=== PATIENT | female | born 1990 | race Caucasian/White ===

== ENCOUNTER 2017-01-29 08:56 | Emergency (ER) | payer OTHER ==
[~2017-01-29] VITALS: Ht 157.5 cm; Wt 60.5 kg
[2017-01-29] MEDS ORDERED: CELE1CAP9 PO (09:08)
[2017-01-29] MEDS ORDERED: FOLI1TAB4 PO (09:08)
[2017-01-29] MEDS ORDERED: METH2.5TA PO (09:08)
[2017-01-29] MEDS ORDERED: OMEP20CA3 PO (09:08)
[2017-01-29] MEDS ORDERED: LIDOCAINE 1% SDV INJ 30 ML VIAL SC SCH (09:30)
[2017-01-29] MEDS ORDERED: DERMABOND TOPICAL SKIN ADHESIVE TOP ONE (09:30)
[2017-01-29] MEDS ORDERED: TYLE325T5 PO (10:19)
[2017-01-29 10:42] VITALS: BP 119/78
== END 2017-01-29 10:43 | disposition home or self-care (01) ==
LOC: M ED 08:56
DX: S61.411A Laceration without foreign body of right hand, initial encounter (principal); W25.XXXA Contact with sharp glass, initial encounter; Y92.9 Unspecified place or not applicable; Y93.89 Activity, other specified; Y99.9 Unspecified external cause status; K21.9 Gastro-esophageal reflux disease without esophagitis; M06.9 Rheumatoid arthritis, unspecified; Z79.899 Other long term (current) drug therapy; Z88.6 Allergy status to analgesic agent; Z88.8 Allergy status to other drugs, medicaments and biological substances

== ENCOUNTER 2017-02-01 11:27 | Emergency (ER) | payer OTHER ==
[~2017-02-01] VITALS: Ht 157.5 cm; Wt 60.5 kg
[2017-02-01 11:27] VITALS: BP 119/80
[~2017-02-01 11:27] MED LIST: CELE1CAP9 PO; FOLI1TAB4 PO; METH2.5TA PO; OMEP20CA3 PO; TYLE325T5 PO
[2017-02-01] MEDS ORDERED: embril IM (11:37)
[2017-02-01] MEDS ORDERED: CEPH500C PO (12:16)
== END 2017-02-01 12:27 | disposition home or self-care (01) ==
LOC: M ED 11:27
DX: L03.115 Cellulitis of right lower limb (principal); M06.9 Rheumatoid arthritis, unspecified; K21.9 Gastro-esophageal reflux disease without esophagitis; Z79.899 Other long term (current) drug therapy; Z88.6 Allergy status to analgesic agent; Z88.8 Allergy status to other drugs, medicaments and biological substances

== ENCOUNTER 2017-02-12 09:09 | Emergency (ER) | payer OTHER ==
[~2017-02-12] VITALS: Ht 157.5 cm; Wt 68.5 kg
[~2017-02-12 09:09] MED LIST changes: +CEPH500C PO; +embril IM
[2017-02-12 09:10] VITALS: BP 114/72
== END 2017-02-12 09:47 | disposition home or self-care (01) ==
LOC: M ED 09:09
DX: Z48.02 Encounter for removal of sutures (principal)

== ENCOUNTER 2017-07-06 18:49 | Inpatient (IN) | payer OTHER ==
[2017-07-06] MEDS ORDERED: PORACTANT ALFA 80MG/ML 1.5 ML VIAL(CUROSURF) As Ordered (19:22)
[2017-07-06] MEDS ORDERED: fentaNYL 100 MCG/2 ML INJECTION (J3010) As Ordered (19:29)
[2017-07-06] MEDS ORDERED: MIDAZOLAM INJ 2 MG/2 ML VIAL (J2250) As Ordered (19:32)
[2017-07-06] MEDS ORDERED: OXYTOCIN INJ 10 UNITS/ML VIAL (J2590) As Ordered ×3 (19:53)
[2017-07-06] MEDS ORDERED: PROPOFOL 200 MG/20 ML VIAL As Ordered (19:53)
[2017-07-06] MEDS ORDERED: SUCCINYLCHOLINE 100 MG/5 ML SYRINGE (J0330) As Ordered (19:53)
[2017-07-06] MEDS ORDERED: UNASYN 3 GM VIAL As Ordered (19:56)
[2017-07-06 19:57] LABS: CORD GAS ABE V -24.3; CORD GAS HCO3 V 10.6 MEQ/L; CORD GAS O2 SAT V 67.8 %; CORD GAS PCO2 V 64.8 mmHg; CORD GAS PO2 V 43.3 mmHg; CORD GAS SBC V 7.6 MEQ/L; CORD GAS TCO2 V 12.6 MEQ/L
[2017-07-06 19:59] LABS: CORD GAS PH V 6.833 UNITS; HEMATOCRIT 34.8 % (36.0-47.0); HEMOGLOBIN 11.7 g/dl (12.0-15.5); MEAN CORPUSCULAR HEMOGLOBIN 30.4 pg (27.0-33.0); MEAN CORPUSCULAR HGB CONC 33.6 g/dl (32.0-36.5); MEAN CORPUSCULAR VOLUME 90.4 fl (80.0-96.0); PLATELET COUNT, AUTOMATED 180 10^3/uL (150-450); RED BLOOD COUNT 3.85 10^6/uL (4.00-5.40); RED CELL DISTRIBUTION WIDTH 13.4 % (11.5-14.5); WHITE BLOOD COUNT 19.3 10^3/uL (4.0-10.0)
[2017-07-06] MEDS ORDERED: METOCLOPRAMIDE INJ 10MG/2ML VIAL (J2765) As Ordered (20:01)
[2017-07-06] MEDS ORDERED: ONDANSETRON 4MG/2ML VIAL (J2405) As Ordered (20:01)
[2017-07-06] MEDS ORDERED: MEPERIDINE 50 MG/ML 1ML VIAL (J2175) As Ordered (20:20)
[2017-07-06] MEDS ORDERED: MORPHINE 1MG/ML IN 0.9% NACL 100ML IV BAG As Ordered (20:36)
[2017-07-06] MEDS: LR 1,000 ML IV ×2 (20:40→23:45)
[2017-07-06] MEDS ORDERED: NS 1,000 ML IV (20:40)
[2017-07-06] MEDS ORDERED: NALBUPHINE HCL 10 MG/ML AMP (J2300) IV (20:45)
[2017-07-06] MEDS ORDERED: MORPHINE 1MG/ML IN 0.9% NACL 100ML IV BAG IV (20:45)
[2017-07-06] MEDS ORDERED: EPIDURAL/PCA KEYS XX (20:45)
[2017-07-06] MEDS: OXYTOCIN DRIP 30 UNITS in APPROPRIATE DILUENT 1 EA IV (20:45)
[2017-07-06] MEDS ORDERED: diphenhydrAMINE INJ 50MG/ML VIAL (J1200) IV (20:45)
[2017-07-06] MEDS ORDERED: NALOXONE INJ 0.4 MG/1 ML VIAL (J2310) IV (20:45)
[2017-07-06] MEDS ORDERED: PERCOCET 5MG/325MG TAB PO ×2 (20:45)
[2017-07-06] MEDS ORDERED: MEASLES,MUMPS,RUBELLA VACCINE INJ (MMR-II) (90707) SC (20:45)
[2017-07-06] MEDS ORDERED: OXYTOCIN 30 UNITS IN 0.9% NaCl 500ML IV BAG (J2590) As Ordered (20:51)
[2017-07-06 21:13] LABS: HEMATOCRIT 30.8 % (36.0-47.0); HEMOGLOBIN 10.2 g/dl (12.0-15.5); MEAN CORPUSCULAR HEMOGLOBIN 30.4 pg (27.0-33.0); MEAN CORPUSCULAR HGB CONC 33.1 g/dl (32.0-36.5); MEAN CORPUSCULAR VOLUME 91.9 fl (80.0-96.0); PLATELET COUNT, AUTOMATED 200 10^3/uL (150-450); RED BLOOD COUNT 3.35 10^6/uL (4.00-5.40); RED CELL DISTRIBUTION WIDTH 13.4 % (11.5-14.5)
[2017-07-06] MEDS ORDERED: fentaNYL 100 MCG/2 ML INJECTION (J3010) IV (21:15)
[2017-07-06] MEDS ORDERED: ONDANSETRON 4MG/2ML VIAL (J2405) IV (21:15)
[2017-07-06 21:24] LABS: FIBRINOGEN 261 MG/DL (221-452)
[2017-07-06 21:29] LABS: AMPHETAMINES URINE REFLEX NEGATIVE (NEGATIVE); BARBITURATES URINE REFLEX NEGATIVE (NEGATIVE); CANNABINOIDS URINE REFLEX NEGATIVE (NEGATIVE); COCAINE METABOLITE URINE REFLE NEGATIVE (NEGATIVE); METHADONE URINE REFLEX NEGATIVE (NEGATIVE); OPIATES URINE REFLEX NEGATIVE (NEGATIVE); PHENCYCLIDINE URINE REFLEX NEGATIVE (NEGATIVE); POS COUNT POS FLAG
[2017-07-06 21:31] LABS: WHITE BLOOD COUNT 36.2 10^3/uL (4.0-10.0)
[2017-07-06 21:36] LABS: ALT/SGPT 25 U/L (12-78); AST/SGOT 46 U/L (7-37); BILIRUBIN,TOTAL 0.1 MG/DL (0.2-1.0); CREATININE FOR GFR 0.86 MG/DL (0.55-1.30); GLOMERULAR FILTRATION RATE > 60.0 (>60); LDH LACTATE DEHYDROGENASE 308 U/L (84-246); URIC ACID 6.3 MG/DL (2.6-6.0)
[2017-07-06 21:49] LABS: BENZODIAZEPINES URINE REFLEX PENDING CONFIRMATION (NEGATIVE)
[2017-07-07] MEDS: AMPICILLIN SOD/SULBACTAM SOD 3 GM in D5W MINI-BAG PLUS 100 ML IV ×4 (02:34→20:13)
[2017-07-07] MEDS ORDERED: EPINEPHrine 1MG/10ML SYRINGE 1.5IN (04:29)
[2017-07-07] MEDS: ONDANSETRON 4MG/2ML VIAL (J2405) IV (05:50)
[2017-07-07] MEDS: LR 1,000 ML IV ×3 (05:51→12:40)
[2017-07-07 07:38] LABS: HEMATOCRIT 25.9 % (36.0-47.0); HEMOGLOBIN 8.7 g/dl (12.0-15.5); MEAN CORPUSCULAR HEMOGLOBIN 31.3 pg (27.0-33.0); MEAN CORPUSCULAR HGB CONC 33.6 g/dl (32.0-36.5); MEAN CORPUSCULAR VOLUME 93.2 fl (80.0-96.0); PLATELET COUNT, AUTOMATED 161 10^3/uL (150-450); RED BLOOD COUNT 2.78 10^6/uL (4.00-5.40); RED CELL DISTRIBUTION WIDTH 13.6 % (11.5-14.5); WHITE BLOOD COUNT 26.5 10^3/uL (4.0-10.0)
[2017-07-07] MEDS: PRENATAL VITAMINS CHEWABLE TABLET PO (08:04)
[2017-07-07] MEDS ORDERED: PERCOCET 5MG/325MG TAB PO (08:15)
[2017-07-07] MEDS: PERCOCET 5MG/325MG TAB PO ×4 (08:41→21:46)
[2017-07-07] MEDS: zolPIDEM TARTRATE 5 MG TAB PO (23:02)
[2017-07-07] MEDS: SIMETHICONE 80 MG CHEW TAB PO (23:02)
[2017-07-08] MEDS: AMPICILLIN SOD/SULBACTAM SOD 3 GM in D5W MINI-BAG PLUS 100 ML IV (02:00)
[2017-07-08] MEDS: PERCOCET 5MG/325MG TAB PO ×4 (05:09→22:47)
[2017-07-08 09:05] LABS: HEMATOCRIT 22.6 % (36.0-47.0); HEMOGLOBIN 7.4 g/dl (12.0-15.5); MEAN CORPUSCULAR HGB CONC 32.7 g/dl (32.0-36.5); MEAN CORPUSCULAR VOLUME 94.6 fl (80.0-96.0); PLATELET COUNT, AUTOMATED 146 10^3/uL (150-450); RED BLOOD COUNT 2.39 10^6/uL (4.00-5.40); RED CELL DISTRIBUTION WIDTH 13.9 % (11.5-14.5); WHITE BLOOD COUNT 20.6 10^3/uL (4.0-10.0)
[2017-07-08] MEDS: SIMETHICONE 80 MG CHEW TAB PO (09:23)
[2017-07-08] MEDS: PRENATAL VITAMINS CHEWABLE TABLET PO (09:23)
[2017-07-08] MEDS: NS 1,000 ML IV (10:45)
[2017-07-08] MEDS ORDERED: NS 1,000 ML IV (14:19)
[2017-07-08 15:12] LABS: IMMEDIATE SPIN CROSSMATCH 1 2
[2017-07-08 17:10] LABS: MEAN CORPUSCULAR HEMOGLOBIN 31.1 pg (27.0-33.0); MEAN CORPUSCULAR VOLUME 91.5 fl (80.0-96.0); PLATELET COUNT, AUTOMATED 161 10^3/uL (150-450); RED BLOOD COUNT 3.28 10^6/uL (4.00-5.40); RED CELL DISTRIBUTION WIDTH 14.1 % (11.5-14.5); WHITE BLOOD COUNT 20.5 10^3/uL (4.0-10.0)
[2017-07-08 17:16] LABS: HEMOGLOBIN 10.2 g/dl (12.0-15.5)
[2017-07-08 17:35] LABS: ALT/SGPT 44 U/L (12-78); AST/SGOT 102 U/L (7-37); BILIRUBIN,TOTAL 0.2 MG/DL (0.2-1.0); CREATININE FOR GFR 0.84 MG/DL (0.55-1.30); GLOMERULAR FILTRATION RATE > 60.0 (>60); LDH LACTATE DEHYDROGENASE 354 U/L (84-246); URIC ACID 7.9 MG/DL (2.6-6.0)
[2017-07-08] MEDS: LABETALOL 200 MG TAB PO (19:29)
[2017-07-08] MEDS ORDERED: LABETALOL 200 MG TAB PO (21:00)
[2017-07-09] MEDS: PERCOCET 5MG/325MG TAB PO (03:07)
[2017-07-09] MEDS: PRENATAL VITAMINS CHEWABLE TABLET PO (09:06)
[2017-07-09] MEDS: LABETALOL 200 MG TAB PO (09:07)
[2017-07-09 09:58] LABS: FETAL SCREEN PROF. 1 1
[2017-07-09] MEDS: MOM 30ML SUSPENSION UDC PO (10:30)
[2017-07-09] MEDS: DOCUSATE SODIUM 100 MG CAP PO (10:30)
[2017-07-09] MEDS: RHOGAM 300 MCG (1500 IU) INJ (J2790) IM (10:33)
[2017-07-10 09:48] LABS: RUBELLA IgG QUALITATIVE IMMUNE (IMMUNE)
== END 2017-07-09 13:05 | disposition home or self-care (01) | DRG 540 ==
LOC: M LDO 18:49 → M LDI 19:15 → M OBS 22:00
PROVIDERS: Obstetrics & Gynecology
PROC: 10D00Z1 Extraction of Products of Conception, Low, Open Approach (ICD-10-PCS; principal; 2017-07-06 19:27)
PROC: 30233N1 Transfusion of Nonautologous Red Blood Cells into Peripheral Vein, Percutaneous Approach (ICD-10-PCS; 2017-07-06 19:27)
DX: O76 Abnormality in fetal heart rate and rhythm complicating labor and delivery (principal); O45.8X3 Other premature separation of placenta, third trimester; O09.33 Supervision of pregnancy with insufficient antenatal care, third trimester; Z37.1 Single stillbirth; Z88.8 Allergy status to other drugs, medicaments and biological substances; Z3A.29 29 weeks gestation of pregnancy

== ENCOUNTER → 2018-04-12 | Outpatient (CLI) | payer OTHER ==
[~2018-04-12] MED LIST changes: +FOLI1TAB11 PO; -FOLI1TAB4 PO; +LABE20TAB PO; +METH2.5T48 PO; -METH2.5TA PO; +OXYC1TAB23 PO
--- NOTE | 2018-04-12 08:39 | REP ---
FIRST TRIMESTER OB AND EV PROBE ULTRASOUND: 04/12/2018. Clinical history: First trimester, supervision of . Findings: By LMP she would be 7 weeks 6 days. Today's study with transabdominal and endovaginal probes show the bladder empty, not prepared. The uterus is slightly retroverted. There is a small gestational sac in the fundus of the uterus. On the EV probe there is a suspected pole with crown-rump length of 2.5 mm which would correspond to 5 weeks 6 days. No heart activity is detected at this time. I do not see a subchorionic bleed. The mean sac diameter is 8.8 mm corresponding to 5 weeks 5 days. The right ovary is 4.5 x 4.1 x 4.5 cm which is normal Doppler tracing resistive index of 0.43. Within it is a 3.7 x 3.4 x 2.9 cm cyst or corpus luteum. The left ovary is 2.9 x 2.2 x 1.1 cm with Doppler tracing show resistive index of 0.45. It is only seen on the transabdominal images. There is no pelvic free fluid. Impression: 1. Gestational sac with a pole with crown-rump length 5 weeks 6 days but no heart activity. This could represent early IUP too early to detect heart activity or missed spontaneous . 2. Right ovary with a presumed corpus luteum cyst 3.7 x 3.4 cm. No pelvic free fluid. Left ovary unremarkable. 3. There is no fluid in endometrial cavity or cervical canal. 4. Recommend follow-up in 7-10 days with beta HCG and ultrasound as clinically indicated. Electronically Signed by Napoleon Mcdaniel MD 04/12/2018 07:22 P
== END ==
LOC: M RAD 06:45
PROVIDERS: ATTEND Nurse Practitioner Family
DX: Z32.01 Encounter for pregnancy test, result positive (principal)

== ENCOUNTER 2018-06-04 12:40 | Emergency (ER) | payer OTHER ==
[~2018-06-04] VITALS: Ht 157.5 cm; Wt 70.5 kg
[2018-06-04 13:10] LABS: BASO # 0.1 10^3/uL (0.0-0.2); BASO % 0.6 % (0.0-1.0); EOS # 0.2 10^3/uL (0.0-0.50); EOS % 2.1 % (0.0-3.0); HEMATOCRIT 39.3 % (36.0-47.0); HEMOGLOBIN 12.9 g/dl (12.0-15.5); LYMPH # 2.5 10^3/uL (1.5-6.5); LYMPH % 24.9 % (24.0-44.0); MEAN CORPUSCULAR HEMOGLOBIN 29.7 pg (27.0-33.0); MEAN CORPUSCULAR HGB CONC 32.8 g/dl (32.0-36.5); MEAN CORPUSCULAR VOLUME 90.3 fl (80.0-96.0); MONO # 0.7 10^3/uL (0.0-0.8); NEUTROPHILS # 6.5 10^3/uL (1.8-7.7); NEUTROPHILS % 65.2 % (36.0-66.0); PLATELET COUNT, AUTOMATED 241 10^3/uL (150-450); RED BLOOD COUNT 4.35 10^6/uL (4.00-5.40)
[2018-06-04 13:39] LABS: ALBUMIN 4.2 GM/DL (3.2-5.2); ALT/SGPT 18 U/L (12-78); BILIRUBIN,DIRECT < 0.1 MG/DL (0.0-0.2); BILIRUBIN,TOTAL 0.3 MG/DL (0.2-1.0); BLOOD UREA NITROGEN 10 MG/DL (7-18); CALCIUM LEVEL 8.9 MG/DL (8.5-10.1); CARBON DIOXIDE LEVEL 26 MEQ/L (21-32); CHLORIDE LEVEL 109 MEQ/L (98-107); CREATININE FOR GFR 0.67 MG/DL (0.55-1.30); GLOMERULAR FILTRATION RATE > 60.0 (>60); GLUCOSE, FASTING 92 MG/DL (70-100); LIPASE 162 U/L (73-393); POTASSIUM SERUM 3.8 MEQ/L (3.5-5.1); SODIUM LEVEL 140 MEQ/L (136-145); TOTAL PROTEIN 7.4 GM/DL (6.4-8.2)
[2018-06-04] MEDS ORDERED: ACETAMINOPHEN 500 MG TAB PO ONE (13:45)
[2018-06-04 14:45] LABS: HCG, SERUM QUALITATIVE NEGATIVE (NEGATIVE)
--- NOTE | 2018-06-04 14:55 | REP ---
Pelvic ultrasound including transabdominal and Doppler ultrasound assessment: The uterus is anteverted and enlarged measuring 11.4 x 4.5 x 5.3 cm. The endometrium is not thickened measuring up to 9.5 mm. The right ovary measures 3.4 x 1.5 x 2.5 cm. Left ovary measures 3.9 x 1.7 x 2.9 cm. The ovaries are normal size. There are no dominant ovarian masses or cysts. There is vascular flow in both ovaries. The Doppler resistive index of the parenchymal arteries in the right ovary 0.6 and a left ovary 0.50. There is a trace of free fluid in the pelvis near the uterine fundus. Impression: There is vascular flow in both ovaries. There are no dominant ovarian masses or cysts. There is a trace of free fluid in the pelvis near the uterine fundus. The uterus is diffusely enlarged. Electronically Signed by Robby Johnson MD 06/04/2018 02:47 P
[2018-06-04 15:24] VITALS: BP 130/86
[2018-06-04 16:50] LABS: CHLAMYDIA DNA AMPLIFICATION NEGATIVE (NEGATIVE); GC DNA AMPLIFICATION NEGATIVE (NEGATIVE)
== END 2018-06-04 15:30 | disposition home or self-care (01) ==
LOC: M ED 12:40
DX: R10.2 Pelvic and perineal pain (principal); M06.9 Rheumatoid arthritis, unspecified; K21.9 Gastro-esophageal reflux disease without esophagitis; Z79.899 Other long term (current) drug therapy; Z88.8 Allergy status to other drugs, medicaments and biological substances

== ENCOUNTER 2018-12-02 06:55 | Emergency (ER) | payer OTHER ==
[~2018-12-02] VITALS: Ht 157.5 cm; Wt 70.5 kg
[~2018-12-02 06:55] MED LIST changes: -OMEP20CA3 PO; +OMEP20CA4 PO
[2018-12-02 07:55] LABS: HEMOGLOBIN 12.7 g/dl (12.0-15.5); MEAN CORPUSCULAR HEMOGLOBIN 30.2 pg (27.0-33.0); MEAN CORPUSCULAR HGB CONC 33.4 g/dl (32.0-36.5); MEAN CORPUSCULAR VOLUME 90.5 fl (80.0-96.0); PLATELET COUNT, AUTOMATED 225 10^3/uL (150-450); WHITE BLOOD COUNT 8.3 10^3/uL (4.0-10.0)
[2018-12-02] MEDS ORDERED: RHOGAM 300 MCG (1500 IU) INJ (J2790) IM ONE (09:45)
--- NOTE | 2018-12-02 10:03 | REP ---
REASON: Pelvic pain. Transvesical and transvaginal imaging was obtained. COMPARISON: 06/04/2018 The uterus measures 9 x 5 x 6.4 cm and is unchanged in size, shape, and echo pattern compared to the latest prior exam. No abnormalities are noted. The endometrial echo complex is smooth and unremarkable appearing measuring 1.8 cm. The ovaries are normal in size, shape, and echo pattern. There is an involuting follicle seen in the left ovary. This is not abnormal. There is a trace amount of free fluid in the pelvis. Since the patient complains of pelvic pain, bilateral ovarian Doppler was obtained. The right ovarian RI is 0.51 and the left ovarian RI is 0.57. These are normal. IMPRESSION: Normal pelvic ultrasound. Electronically Signed by William Lisa DO 12/02/2018 10:04 A
[2018-12-02 10:58] VITALS: BP 131/84
== END 2018-12-02 11:00 | disposition home or self-care (01) ==
LOC: M ED 06:55
DX: O20.0 Threatened abortion (principal); O34.81 Maternal care for other abnormalities of pelvic organs, first trimester; Z87.59 Personal history of other complications of pregnancy, childbirth and the puerperium; O99.611 Diseases of the digestive system complicating pregnancy, first trimester; Z79.899 Other long term (current) drug therapy; Z88.6 Allergy status to analgesic agent; Z88.8 Allergy status to other drugs, medicaments and biological substances
CPT/HCPCS: 36415; 76801; 76817; 81001; 84702; 85027; 86850; 86901; 93976; 96372; 99284; J2790

== ENCOUNTER → 2018-12-04 | Outpatient (CLI) | payer OTHER | LOC: M LAB 08:15 | PROVIDERS: ATTEND Emergency Medicine | DX: O20.0 Threatened abortion (principal); Z3A.00 Weeks of gestation of pregnancy not specified ==

== ENCOUNTER → 2018-12-12 | Outpatient (CLI) | payer OTHER | LOC: M LAB 09:47 | PROVIDERS: ATTEND Advanced Practice Midwife | DX: O03.9 Complete or unspecified spontaneous abortion without complication (principal) ==

== ENCOUNTER 2019-02-07 21:18 | Emergency (ER) | payer OTHER ==
[~2019-02-07] VITALS: Ht 157.5 cm; Wt 70.5 kg
[~2019-02-07 21:18] MED LIST changes: +OMEP-172 PO; -OMEP20CA4 PO
[2019-02-07] MEDS ORDERED: NS 1,000 ML IV ONE (22:30)
[2019-02-07 22:49] LABS: BASO # 0.1 10^3/uL (0.0-0.2); BASO % 0.5 % (0.0-1.0); EOS % 0.3 % (0.0-3.0); HEMATOCRIT 34.9 % (36.0-47.0); HEMOGLOBIN 11.6 g/dl (12.0-15.5); LYMPH # 1.5 10^3/uL (1.5-5.0); LYMPH % 12.3 % (24.0-44.0); MEAN CORPUSCULAR HEMOGLOBIN 29.9 pg (27.0-33.0); MEAN CORPUSCULAR HGB CONC 33.2 g/dl (32.0-36.5); MEAN CORPUSCULAR VOLUME 89.9 fl (80.0-96.0); MONO # 0.6 10^3/uL (0.0-0.8); MONO % 4.7 % (0.0-5.0); NEUTROPHILS % 81.9 % (36.0-66.0); PLATELET COUNT, AUTOMATED 233 10^3/uL (150-450); RED BLOOD COUNT 3.88 10^6/uL (4.00-5.40); WHITE BLOOD COUNT 12.2 10^3/uL (4.0-10.0)
[2019-02-07] MEDS ORDERED: ACETAMINOPHEN 325 MG TAB PO ONE (23:15)
[2019-02-07] MEDS ORDERED: METOCLOPRAMIDE INJ 10MG/2ML VIAL (J2765) IV ONE (23:15)
[2019-02-07 23:26] LABS: ALBUMIN 3.3 GM/DL (3.2-5.2); ALT/SGPT 18 U/L (12-78); BILIRUBIN,DIRECT 0.2 MG/DL (0.0-0.2); BILIRUBIN,TOTAL 0.6 MG/DL (0.2-1.0); BLOOD UREA NITROGEN 8 MG/DL (7-18); CALCIUM LEVEL 7.5 MG/DL (8.5-10.1); CARBON DIOXIDE LEVEL 23 MEQ/L (21-32); CHLORIDE LEVEL 112 MEQ/L (98-107); CREATININE FOR GFR 0.53 MG/DL (0.55-1.30); GLOMERULAR FILTRATION RATE > 60.0 (>60); GLUCOSE, FASTING 74 MG/DL (70-100); HCG, SERUM QUANTITATIVE 17856 MIU/ML; LIPASE 80 U/L (73-393); POTASSIUM SERUM 3.3 MEQ/L (3.5-5.1); SODIUM LEVEL 142 MEQ/L (136-145); TOTAL PROTEIN 6.5 GM/DL (6.4-8.2)
[2019-02-08] MEDS ORDERED: REGL10TA6 PO (00:01)
[2019-02-08 00:52] VITALS: BP 136/86
== END 2019-02-08 01:00 | disposition home or self-care (01) ==
LOC: M ED 21:18
DX: O21.0 Mild hyperemesis gravidarum (principal); Z3A.00 Weeks of gestation of pregnancy not specified; Z88.8 Allergy status to other drugs, medicaments and biological substances; Z88.6 Allergy status to analgesic agent
CPT/HCPCS: 80048; 80076; 81001; 83690; 84702; 85025; 96361; 96374; 99284; J2765

== ENCOUNTER → 2019-03-06 | Outpatient (CLI) | payer OTHER ==
[~2019-03-06] MED LIST changes: -OMEP-172 PO; +OMEP1CAP73 PO; +REGL10TA6 PO
[2019-03-06 11:50] LABS: HEMATOCRIT 37.6 % (36.0-47.0); HEMOGLOBIN 12.9 g/dl (12.0-15.5); MEAN CORPUSCULAR HEMOGLOBIN 30.3 pg (27.0-33.0); MEAN CORPUSCULAR HGB CONC 34.3 g/dl (32.0-36.5); MEAN CORPUSCULAR VOLUME 88.3 fl (80.0-96.0); PLATELET COUNT, AUTOMATED 234 10^3/uL (150-450); RED BLOOD COUNT 4.26 10^6/uL (4.00-5.40); WHITE BLOOD COUNT 7.2 10^3/uL (4.0-10.0)
[2019-03-06 12:18] LABS: ALT/SGPT 18 U/L (12-78); BILIRUBIN,TOTAL 0.5 MG/DL (0.2-1.0); CREATININE FOR GFR 0.67 MG/DL (0.55-1.30); GLOMERULAR FILTRATION RATE > 60.0 (>60); LDH LACTATE DEHYDROGENASE 155 U/L (84-246)
[2019-03-06 12:27] LABS: TOTAL PROTEIN,RANDOM URINE 25.3 MG/DL (0.0-12.0)
[2019-03-06 12:38] LABS: RUBELLA IgG QUALITATIVE IMMUNE (IMMUNE)
[2019-03-06 12:39] LABS: HEPATITIS B SURFACE ANTIGEN NEGATIVE (NEGATIVE)
[2019-03-06 13:07] LABS: HEPATITIS C VIRUS ABY INDEX < 0.0 INDEX (<0.8); HIV 1&2 SCREEN CENTAUR NEGATIVE (NEGATIVE)
[2019-03-06 13:33] LABS: CHLAMYDIA DNA AMPLIFICATION NEGATIVE (NEGATIVE); GC DNA AMPLIFICATION NEGATIVE (NEGATIVE)
== END ==
LOC: M LAB 10:49
PROVIDERS: ATTEND Advanced Practice Midwife
DX: Z33.1 Pregnant state, incidental (principal)

== ENCOUNTER 2019-03-18 20:20 | Emergency (ER) | payer OTHER ==
[~2019-03-18] VITALS: Ht 157.5 cm; Wt 65.9 kg
[2019-03-18 21:14] LABS: BASO # 0.1 10^3/uL (0.0-0.2); BASO % 0.6 % (0.0-1.0); EOS # 0.1 10^3/uL (0.0-0.5); HEMATOCRIT 36.4 % (36.0-47.0); HEMOGLOBIN 12.2 g/dl (12.0-15.5); LYMPH % 18.8 % (24.0-44.0); MEAN CORPUSCULAR HGB CONC 33.5 g/dl (32.0-36.5); MEAN CORPUSCULAR VOLUME 89.4 fl (80.0-96.0); MONO # 0.6 10^3/uL (0.0-0.8); NEUTROPHILS # 7.7 10^3/uL (1.5-8.5); NEUTROPHILS % 73.3 % (36.0-66.0); PLATELET COUNT, AUTOMATED 187 10^3/uL (150-450); RED BLOOD COUNT 4.07 10^6/uL (4.00-5.40); WHITE BLOOD COUNT 10.5 10^3/uL (4.0-10.0)
--- NOTE | 2019-03-18 22:55 | REPVR ---
PROCEDURE INFORMATION: Exam: US First Trimester, Transabdominal Exam date and time: 03/18/2019 10:14 PM Age: 28 years old Clinical indication: Lmp or gestational age (in weeks): 12wks; Antepartum complications; Bleeding; ; Additional info: Vaginal bleeding TECHNIQUE: Imaging protocol: Real-time transabdominal obstetrical ultrasound of the maternal pelvis and a first trimester , less than 14 weeks 0 days, with image documentation. COMPARISON: No relevant prior studies available. FINDINGS: GESTATION: Gestation: Single living intrauterine fetus. No subchorionic bleed. Heart rate: 163 bpm. Placenta: Unremarkable. No subchorionic bleed. Amniotic fluid: Amniotic and chorionic fluid are normal for gestational age. BIOMETRY: Estimated gestational age: 12 weeks 0 days. Castor-Rump length: 5.3 cm. MATERNAL: Uterus: Unremarkable. Cervix: Unremarkable. Right adnexa: 1.6 cm cyst in the right ovary. Right ovary and adnexa are otherwise unremarkable. Left adnexa: Left ovary and adnexa are unremarkable. Intraperitoneal: No intraperitoneal free fluid. IMPRESSION: Single living intrauterine fetus with estimated gestational age of 12 weeks 0 days. Electronically signed by: Jorge A Carmen On 03/18/2019 22:55:24 PM
[2019-03-19 00:21] VITALS: BP 115/72
== END 2019-03-19 00:22 | disposition home or self-care (01) ==
LOC: M ED 20:20
DX: O20.0 Threatened abortion (principal); O34.81 Maternal care for other abnormalities of pelvic organs, first trimester; N83.291 Other ovarian cyst, right side; Z3A.12 12 weeks gestation of pregnancy; Z88.6 Allergy status to analgesic agent; Z88.8 Allergy status to other drugs, medicaments and biological substances; Z79.899 Other long term (current) drug therapy

== ENCOUNTER → 2019-03-18 | Outpatient (REF) | payer OTHER | LOC: M SFHCWAGY 12:14 | PROVIDERS: ATTEND Obstetrics & Gynecology | DX: O20.9 Hemorrhage in early pregnancy, unspecified (principal); Z3A.00 Weeks of gestation of pregnancy not specified ==

== ENCOUNTER 2019-03-20 01:38 | Emergency (ER) | payer OTHER ==
[~2019-03-20] VITALS: Ht 157.5 cm; Wt 65.5 kg
[2019-03-20 02:04] LABS: BASO # 0.1 10^3/uL (0.0-0.2); BASO % 0.2 % (0.0-1.0); HEMATOCRIT 33.7 % (36.0-47.0); HEMOGLOBIN 11.5 g/dl (12.0-15.5); LYMPH # 0.8 10^3/uL (1.5-5.0); LYMPH % 3.5 % (24.0-44.0); MEAN CORPUSCULAR HEMOGLOBIN 30.3 pg (27.0-33.0); MEAN CORPUSCULAR HGB CONC 34.1 g/dl (32.0-36.5); MEAN CORPUSCULAR VOLUME 88.9 fl (80.0-96.0); MONO # 0.8 10^3/uL (0.0-0.8); MONO % 3.4 % (0.0-5.0); NEUTROPHILS # 22.2 10^3/uL (1.5-8.5); NEUTROPHILS % 92.2 % (36.0-66.0); PLATELET COUNT, AUTOMATED 202 10^3/uL (150-450); RED BLOOD COUNT 3.79 10^6/uL (4.00-5.40)
[2019-03-20] MEDS ORDERED: MORPHINE 4 MG/ML 1ML VIAL/SYRINGE (J2270) IV ONE (02:45)
[2019-03-20] MEDS ORDERED: RHOGAM 300 MCG (1500 IU) INJ (J2790) IM ONE (03:00)
[2019-03-20 03:56] VITALS: BP 119/59
--- NOTE | 2019-03-20 04:02 | REPVR ---
PROCEDURE INFORMATION: Exam: US First Trimester, Transabdominal Exam date and time: 03/20/2019 3:03 AM Age: 28 years old Clinical indication: Lmp or gestational age (in weeks): 01/02/19; Antepartum complications; Bleeding; ; Additional info: Augusta mendez TECHNIQUE: Imaging protocol: Real-time transabdominal obstetrical ultrasound of the maternal pelvis and a first trimester , less than 14 weeks 0 days, with image documentation. COMPARISON: 1ST TRIMESTER US 03/18/2019 10:08 PM FINDINGS: Uterus: Uterus measures 14.6 by 6.4 x 7.9 cm. Endometrium is thickened measuring 24.1 mm. No intrauterine is seen. Cervix: Unremarkable. Right adnexa: Right ovary measures 3.5 x 2.6 x 3.0 cm. Corpus luteal cyst in the right ovary measuring 1.5 x 0.9 x 1.2 cm. Normal vascular flow is seen. Left adnexa: Left ovary is unremarkable measuring 2.7 x 2.0 x 2.9 cm. Intraperitoneal: No free fluid. IMPRESSION: Endometrium is thickened measuring 24.1 mm. No intrauterine is seen. Corpus luteal cyst in the right ovary measuring 1.5 x 0.9 x 1.2 cm. Electronically signed by: Rosana Nava On 03/20/2019 04:02:14 AM
[2019-03-20] MEDS ORDERED: NORCO 5/325MG TABLET (BULK FOR ED) PO ONE (04:30)
== END 2019-03-20 04:58 | disposition home or self-care (01) ==
LOC: M ED 01:38
DX: O03.9 Complete or unspecified spontaneous abortion without complication (principal); Z88.8 Allergy status to other drugs, medicaments and biological substances
CPT/HCPCS: 76801; 84702; 85025; 88305; 93976; 96372; 96374; 99284; J2270; J2790

== ENCOUNTER → 2019-04-11 | Outpatient (CLI) | payer OTHER | LOC: M PLALAB 09:31 | PROVIDERS: ATTEND Obstetrics & Gynecology | DX: O03.9 Complete or unspecified spontaneous abortion without complication (principal); Z3A.00 Weeks of gestation of pregnancy not specified ==

== ENCOUNTER → 2019-09-05 | Outpatient (CLI) | payer OTHER ==
[2019-09-05 10:25] LABS: BASO # 0.1 10^3/uL (0.0-0.2); BASO % 0.7 % (0.0-1.0); EOS # 0.1 10^3/uL (0.0-0.5); EOS % 1.4 % (0.0-3.0); HEMATOCRIT 35.7 % (36.0-47.0); LYMPH # 1.5 10^3/uL (1.5-5.0); MEAN CORPUSCULAR HEMOGLOBIN 28.8 pg (27.0-33.0); MEAN CORPUSCULAR HGB CONC 33.6 g/dl (32.0-36.5); MEAN CORPUSCULAR VOLUME 85.8 fl (80.0-96.0); MONO # 0.6 10^3/uL (0.0-0.8); MONO % 6.5 % (0.0-5.0); NEUTROPHILS # 6.2 10^3/uL (1.5-8.5); PLATELET COUNT, AUTOMATED 220 10^3/uL (150-450); RED BLOOD COUNT 4.16 10^6/uL (4.00-5.40); WHITE BLOOD COUNT 8.5 10^3/uL (4.0-10.0)
[2019-09-08 17:07] LABS: HEXAGONAL PHASE PHOSPHOLIPID 12 sec (0-11)
== END ==
LOC: M LAB 09:19
PROVIDERS: ATTEND Internal Medicine Rheumatology
DX: Z51.81 Encounter for therapeutic drug level monitoring (principal); Z79.899 Other long term (current) drug therapy; Z34.81 Encounter for supervision of other normal pregnancy, first trimester; Z36.89 Encounter for other specified antenatal screening

== ENCOUNTER → 2019-11-07 | Outpatient (CLI) | payer OTHER | LOC: M PLALAB 12:25 | PROVIDERS: ATTEND Obstetrics & Gynecology | DX: Z13.79 Encounter for other screening for genetic and chromosomal anomalies (principal) ==

== ENCOUNTER → 2019-11-08 | Outpatient (CLI) | payer OTHER ==
--- NOTE | 2019-11-21 08:37 | REP ---
COMPLETE OBSTETRICAL ULTRASOUND CLINICAL: Anatomical evaluation. FINDINGS: Ultrasound examination demonstrates a single live intrauterine in transverse lie with head to maternal left. Placenta noted anteriorly and grade 1 without placenta previa or abruption. Amniotic fluid volume is normal. Cervix measures 3.6 cm in length and appears closed. Gestational age by last menstrual period (LMP) 18 weeks 3 days with estimated date of delivery 04/07/2020. Gestational age by current measurements 19 weeks 0 days with estimated date of delivery 04/03/2020. Estimated weight 270 grams (81st percentile). heart rate 149 beats per minute. Anatomical assessment demonstrates normal cranium, ventricles, choroid plexus, cerebellum, posterior fossa, facial features, diaphragm, stomach, kidneys/bladder, spine, extremities, and three-vessel cord. Four chamber heart and cardiac ventricular outflow tract views are limited. IMPRESSION: * Single live intrauterine in transverse lie demonstrating appropriate estimated weight. * Anatomical limitations as noted above may warrant reevaluation and followup. No obvious abnormality noted. MTDD
== END ==
LOC: M WHC 07:20
PROVIDERS: ATTEND Obstetrics & Gynecology
DX: Z34.82 Encounter for supervision of other normal pregnancy, second trimester (principal); Z3A.19 19 weeks gestation of pregnancy

== ENCOUNTER → 2019-12-09 | Outpatient (CLI) | payer OTHER ==
--- NOTE | 2019-12-09 09:40 | REP ---
INDICATION: F/U ANATOMY COMPARISON: 11/08/2019 TECHNIQUE: Transabdominal obstetrical ultrasound with color Doppler evaluation. FINDINGS: Examination demonstrates a single live intrauterine in transverse (head to maternal left) presentation. motion is identified by technologist. Placenta is noted anterior and grade 0 without evidence for placenta previa or abruption. Amniotic fluid volume is normal. Cervix measures 3.1 cm in length and appears closed. No evidence for nuchal cord. Gestational age by LMP 22 weeks 6 days with JAIMEE 04/07/2020. Gestational age by current measurements 22 weeks 6 days with JAIMEE 04/07/2020. FHR equals 149 beats per minute. HC * [5.5 cm]: 20.8 cm * [Twenty-two weeks 6 days]: Twenty-two weeks 6 days AC * [5.5 cm]: 17.9 cm * [Twenty-two weeks 6 days]: Twenty-two weeks 5 days FL * [5.5 cm]: 4.0 cm * [Twenty-two weeks 6 days]: Twenty-two weeks 5 days HL * [5.5 cm]: 3.7 cm * [Twenty-two weeks 6 days]: Twenty-two weeks 6 days Estimated weight 553 grams (36thpercentile). Anatomical assessment again demonstrates limited evaluation of the heart and cardiac ventricular outflow tracts due to positioning IMPRESSION: Single live intrauterine in transverse lie demonstrating appropriate interval growth. Limited evaluation of the heart and ventricular outflow tracts again noted due to positioning. <Electronically signed by Ellis Umaña > 12/09/19 [id number]
== END ==
LOC: M WHC 07:50
PROVIDERS: ATTEND Specialist
DX: Z34.82 Encounter for supervision of other normal pregnancy, second trimester (principal)

== ENCOUNTER → 2019-12-27 | Outpatient (REF) | payer OTHER ==
[2019-12-27 14:04] LABS: HEMATOCRIT 30.9 % (36.0-47.0); HEMOGLOBIN 10.1 g/dl (12.0-15.5); MEAN CORPUSCULAR HEMOGLOBIN 29.4 pg (27.0-33.0); MEAN CORPUSCULAR HGB CONC 32.7 g/dl (32.0-36.5); MEAN CORPUSCULAR VOLUME 90.1 fl (80.0-96.0); PLATELET COUNT, AUTOMATED 217 10^3/uL (150-450); RED BLOOD COUNT 3.43 10^6/uL (4.00-5.40); WHITE BLOOD COUNT 9.3 10^3/uL (4.0-10.0)
== END ==
LOC: M PLALAB 10:00
PROVIDERS: ATTEND Specialist
DX: Z34.82 Encounter for supervision of other normal pregnancy, second trimester (principal)
CPT/HCPCS: 36415; 82950; 85027; 86850; 86900; 86901; J2790

== ENCOUNTER 2020-01-08 13:27 | Outpatient (CLI) | payer OTHER ==
[~2020-01-08] VITALS: Ht 157.5 cm; Wt 80.1 kg
[2020-01-08 13:44] VITALS: BP 112/72
[2020-01-08] MEDS ORDERED: LOVE1INJ SC (14:03)
[2020-01-08] MEDS ORDERED: PRENTAB9 PO (14:03)
[2020-01-08 14:47] VITALS: BP 111/73
[2020-01-08 15:27] VITALS: BP 118/77
[2020-01-08 16:42] VITALS: BP 115/71
== END 2020-01-08 17:04 | disposition home or self-care (01) ==
LOC: M LDO 13:27
PROVIDERS: ATTEND Advanced Practice Midwife
DX: O26.852 Spotting complicating pregnancy, second trimester (principal); O99.112 Other diseases of the blood and blood-forming organs and certain disorders involving the immune mechanism complicating pregnancy, second trimester; Z87.59 Personal history of other complications of pregnancy, childbirth and the puerperium; Z3A.27 27 weeks gestation of pregnancy
CPT/HCPCS: 59025; 81001; 87086; G0378; G0463

== ENCOUNTER → 2020-02-24 | Outpatient (CLI) | payer OTHER ==
[~2020-02-24] MED LIST changes: +LOVE1INJ SC; +PRENTAB9 PO
== END ==
LOC: M WHC 11:57
PROVIDERS: ATTEND Obstetrics & Gynecology
DX: Z34.93 Encounter for supervision of normal pregnancy, unspecified, third trimester (principal); Z3A.33 33 weeks gestation of pregnancy; Z53.9 Procedure and treatment not carried out, unspecified reason

== ENCOUNTER → 2020-03-04 | Outpatient (CLI) | payer OTHER ==
--- NOTE | 2020-03-04 10:05 | REP ---
INDICATION: UTERINE SIZE-DATE DISCREPANCY,GROWTH COMPARISON: 12/09/2019 TECHNIQUE: Transabdominal obstetrical ultrasound with color Doppler evaluation. FINDINGS: Examination demonstrates a single live intrauterine in cephalic presentation. motion is identified by technologist. Placenta is noted anterior and grade 2 without evidence for placenta previa or abruption. Amniotic fluid volume is normal. Cervix measures 3.0 cm in length and appears closed.. Gestational age by LMP 35 weeks 1 day with JAIMEE 04/07/2020. Gestational age by current measurements 35 weeks 0 days with JAIMEE 04/08/2020. FHR equals 136 beats per minute. OLIVIA: 16.8 cm Estimated weight 2754 grams (66thpercentile). IMPRESSION: Single live advanced gestation in cephalic presentation demonstrating appropriate estimated weight and growth. Amniotic fluid volume is normal. <Electronically signed by Ellis Umaña > 03/04/20 1001
== END ==
LOC: M WHC 08:55
PROVIDERS: ATTEND Obstetrics & Gynecology
DX: O26.843 Uterine size-date discrepancy, third trimester (principal); Z3A.33 33 weeks gestation of pregnancy

== ENCOUNTER → 2020-03-10 | Outpatient (REF) | payer OTHER ==
[~2020-03-10] MED LIST changes: +HEPA1010VL INJ; +PERCOCET PO
== END ==
LOC: M SFHCWAGY 17:19
PROVIDERS: ATTEND Obstetrics & Gynecology
DX: Z3A.36 36 weeks gestation of pregnancy (principal)

== ENCOUNTER 2020-03-18 08:04 | Outpatient (CLI) | payer OTHER ==
[~2020-03-18] VITALS: Ht 157.5 cm; Wt 85.1 kg
[~2020-03-18 08:04] MED LIST changes: -HEPA1010VL INJ; -PERCOCET PO
[2020-03-18 08:29] VITALS: BP 127/85
--- NOTE | 2020-03-18 09:24 | IPN ---
PROGRESS NOTE DATE: 03/18/2020 SUBJECTIVE: Shante is a G3 P-0-1-1-0 at 37 and 1/7th weeks, EDC 04/07/2020 based on last menstrual period and confirmed by first trimester ultrasound. Presents to labor and delivery today with a report of some mucous with blood streaked through it this morning. She reports no bleeding had occurred other than that initial episode at approximately 0700. She denies painful contractions and leakage of fluid. The fetus has been active since arrival. [facility] in the first trimester. 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 History of a placenta abruption and preeclampsia with at 29 weeks in a , prior section and lupus anticoagulant positive. She has been on Lovenox throughout the with a switch to unfractionated Heparin one week ago. OBJECTIVE: No vital signs have been recorded. Her heart rate is 145 with moderate variability, positive accelerations, negative decelerations. There is no bleeding noted at the vaginal introitus. Contractions are every three to six minutes. Sterile speculum exam: No bleeding noted. Normal white discharge. Sterile vaginal exam: Fingertip dilated, thick, -3 station, posterior, no show with the examination. ASSESSMENT: Intrauterine at 37 and 1/7th weeks, heart rate is Category 1. No active bleeding. PLAN: Observe patient for 1-2 hours. Will reassess. If no bleeding noted then the patient will be discharged to home at that time.
[2020-03-18] MEDS ORDERED: HEPA1010VL INJ (09:36)
== END 2020-03-18 11:20 | disposition home or self-care (01) ==
LOC: M LDO 08:04
PROVIDERS: ATTEND Advanced Practice Midwife
DX: O26.853 Spotting complicating pregnancy, third trimester (principal); O99.013 Anemia complicating pregnancy, third trimester; D56.9 Thalassemia, unspecified; D68.62 Lupus anticoagulant syndrome; Z3A.37 37 weeks gestation of pregnancy; Z87.59 Personal history of other complications of pregnancy, childbirth and the puerperium; Z88.6 Allergy status to analgesic agent
CPT/HCPCS: 59025; G0378; G0463

== ENCOUNTER 2020-03-24 12:49 | Inpatient (IN) | payer OTHER ==
[~2020-03-24] VITALS: Ht 157.5 cm; Wt 88.1 kg
[2020-03-24] MEDS: LR 1,000 ML IV SCH
[~2020-03-24 12:49] MED LIST changes: +HEPA1010VL INJ
[2020-03-24 13:06] VITALS: BP 144/97
[2020-03-24 13:16] VITALS: BP 135/92
[2020-03-24 13:46] LABS: HEMATOCRIT 30.7 % (36.0-47.0); HEMOGLOBIN 9.6 g/dl (12.0-15.5); MEAN CORPUSCULAR HEMOGLOBIN 26.1 pg (27.0-33.0); MEAN CORPUSCULAR HGB CONC 31.3 g/dl (32.0-36.5); MEAN CORPUSCULAR VOLUME 83.4 fl (80.0-96.0); PLATELET COUNT, AUTOMATED 200 10^3/uL (150-450); RED BLOOD COUNT 3.68 10^6/uL (4.00-5.40); WHITE BLOOD COUNT 11.9 10^3/uL (4.0-10.0)
[2020-03-24 14:14] LABS: TOTAL PROTEIN,RANDOM URINE 48.8 MG/DL (0.0-12.0)
[2020-03-24 14:17] LABS: ALBUMIN 2.8 GM/DL (3.2-5.2); ALT/SGPT 16 U/L (12-78); BILIRUBIN,TOTAL 0.1 MG/DL (0.2-1.0); BLOOD UREA NITROGEN 8 MG/DL (7-18); CALCIUM LEVEL 8.9 MG/DL (8.5-10.1); CARBON DIOXIDE LEVEL 22 MEQ/L (21-32); CHLORIDE LEVEL 110 MEQ/L (98-107); GLOMERULAR FILTRATION RATE > 60.0 (>60); GLUCOSE, FASTING 82 MG/DL (70-100); POTASSIUM SERUM 4.1 MEQ/L (3.5-5.1); SODIUM LEVEL 138 MEQ/L (136-145); TOTAL PROTEIN 6.2 GM/DL (6.4-8.2)
[2020-03-24] MEDS ORDERED: LR 1,000 ML IV SCH ×2 (14:54→21:45)
[2020-03-24] MEDS ORDERED: BICITRA 30ML SOLN UDC PO ONE (15:00)
[2020-03-24] MEDS ORDERED: ceFAZolin SOD 2 GM in IV 1 EA IV ONE (15:00)
--- NOTE | 2020-03-24 16:15 | HPEPDOC ---
Obstetrical History & Physical General Date of Admission Mar 24, 2020 at 14:56 History of Present Illness Shante is a 29yo with SIUP at 38w0d by lmp c/w 9wk u/s presenting from clinic for elevated bp's. No SIMENTAL/vision changes/abd pain. Good movement. No regular/painful ctx, no LOF. Lab workup was performed which revealed urine protein:creatinine is now 0.37 which is a change from 03/05 when it was 0.07. Plt, creat, LFTs wnl. She is anemic with H/H 9.6/30.7. BP's remain mild range. Chief Complaint: Pre-eclamsia Information Provided By: Patient Care Care: Good Care Dating Final EDC: Apr 07, 2020 Final EDC by: LMP, 1st trimester (US) Antepartum Course Diagnos(e)s She has history of placental abruption related to pre-eclampsia in June 2017 at 29wk that resulted in despite emergent PLTCS. She also was noted on workup for SLE to have isolated + lupus anticoagulant, so was started on Lovenox 40mg SC daily and switched to 10,000u unfractionated heparin SC BID at 36wk. Rh negative, received rhogam 01/27/2020. Past Medical History Past Obstetrical History : Past Obstetrical History: Multigravida (Placental abruption related to pre- eclampsia in June 2017 at 29wk that resulted in despite emergent PLTCS) [employer] History: Spontaneous (Feb 2019) Past Medical History Medical History Seronegative polyarticular juvenile arthritis since age 12, rheumatoid arthritis, +lupus anticoagulant Surgical History: section Family History Significant Family History: Other (Patient's oldest sister has high functioning MR) Social History Marital Status: Family situation: Spouse/partner deployed ([place]) Psychosocial History: No pertinent psych hx * Smoker: non-smoker Alcohol: Denies Drugs: denies Allergies Coded Allergies: adalimumab (Verified Allergy, Unknown, 02/07/19) hives ibuprofen (Verified Allergy, Unknown, 02/07/19) Medications Scheduled Heparin Sod (Porcine) (Heparin Sodium) 1,000 Unit/1 Ml Vial, 10,000 MG INJ BID No.137/Iron/Folic Acd ( Vitamin Tablet) 1 Each Tablet, 1 TAB PO DAILY Physical Examination Physical Examination GENERAL: Alert and oriented times three. ABDOMEN: Gravid and non-tender to touch. EXTREMITIES: No edema BLE Vital Signs/I&O Vital Signs Date Time Temp Pulse Resp B/P (MAP) Pulse Ox O2 Delivery O2 Flow Rate FiO2 03/24/20 13:16 91 135/92 (106) 03/24/20 13:06 97.7 18 Laboratory Data 24H LABS Laboratory Tests 2 03/24/20 13:33: Nucleated Red Blood Cells % (auto) 0.2H, Anion Gap 6L, Glomerular Filtration Rate > 60.0, Calcium Level 8.9, Total Bilirubin 0.1L, Aspartate Amino Transf (AST/SGOT) 11, Alanine Aminotransferase (ALT/SGPT) 16, Alkaline Phosphatase 150H, Total Protein 6.2L, Albumin 2.8L, Albumin/Globulin Ratio 0.8L 03/24/20 13:36: Urine Random Creatinine 131.0, Urine Random Total Protein 48.8H 03/24/20 15:15: Serology Scanned Report Hepatitis B Testing CBC/BMP Laboratory Tests 03/24/20 13:33 Pertinent Laboratoy Data Blood Type: O- RBC Antibody Screen: Negative HIV: Negative Hepatitis B: Negative Hepatitis C: Negative Rapid Plasma Reagin: Nonreactive Rubella: Immune Chlamydia/Gonorrhea: Negative Group B Streptococcus: Negative Glucose Tolerance Test: 115 Anatomy Ultrasound Ultrasound Date: Nov 08, 2019 Placenta Location: Anterior Normal Anatomy: Yes Placenta Previa: No Other Ultrasounds 12/08 f/u u/s for views, 03/04 growth 66%ile EFW Steroid Therapy Steroid Therapy: No Vaginal Examination Dilation: 1cm Effacement: other (thick) Station: -3 Cervical Consistency: Medium Cervical Position: Posterior Assessment Heart Rate (FHR): 140 Variability: Moderate Accelerations: Positive Decelerations: None Tocometer Contractions: Yes Frequency: irregular Assessment/Plan Assessment Shante is a 29yo with SIUP at 38w0d by lmp c/w 9wk u/s with new diagnosis of pre-eclampsia withOUT severe features based on mild range bp's and urine prot:creat 0.37 (which is increased from 0.07 on 03/05). I discussed with patient new diagnosis of pre-eclampsia withOUT severe features. She has history of placental abruption related to pre-eclampsia in June 2017 at 29wk that resulted in despite emergent PLTCS. She also was noted on workup for SLE to have isolated + lupus anticoagulant, so was started on Lovenox 40mg SC daily and switched to 10,000u unfractionated heparin SC BID at 36wk. Her last dose of heparin was at 0800 this morning and she last ate at 1400. I discussed with patient indication for delivery and we discussed IOL/TOLAC vs RLTCS. I discussed we cannot use cytotec and would likely mean a prolonged IOL with possibility that she will not progress to and also 1% risk for uterine rupture. After our discussion of the r/b/a, she elects to proceed with RLTCS. Discussed plan with anesthesia and they would like to wait until 12hr after heparin/6 hours after eating, so approx 20:00 this evening. Patient is amenable to plan. Plan Admit and orient. Counseled and consented for TOLAC/IOL vs RLTCS and patient elects for RLTCS Discussed with anesthesia, plan for surgery after 20:00 since had 10,000u UFH at 0800 and ate at 1400 Diet: NPO Prior to , Bicitra PO and 2g anceph IV Group B Streptococcus (GBS) negative Labs and intravenous (IV) per unit protocol. Lactated Ringers (LR) 125 mL/hr. Micheline Patterson MD Mar 24, 2020 16:15
[2020-03-24 20:21] LABS: INR 0.96; PARTIAL THROMBOPLASTIN TIME 25.8 SECONDS (24.2-38.5)
[2020-03-24] MEDS ORDERED: diphenhydrAMINE 50MG/ML VIAL (J1200) IV PRN (20:54)
[2020-03-24] MEDS ORDERED: METOCLOPRAMIDE INJ 10MG/2ML VIAL (J2765 PER 1) IV PRN ×2 (20:54→21:45)
[2020-03-24] MEDS ORDERED: NALBUPHINE HCL 10 MG/ML AMP (J2300) IV PRN (20:54)
[2020-03-24] MEDS ORDERED: ONDANSETRON 4MG/2ML VIAL IV PRN ×3 (20:54→22:00)
[2020-03-24] MEDS ORDERED: NALOXONE INJ 0.4MG/1ML VIAL (J2310 PER 1MG) IV PRN ×2 (20:54)
[2020-03-24] MEDS ORDERED: ONDANSETRON 4MG/2ML VIAL As Ordered ONE (20:59)
[2020-03-24] MEDS ORDERED: MORPHINE PRES-FREE INJ 10 MG/10 ML VIAL (J2274) As Ordered ONE (20:59)
[2020-03-24] MEDS ORDERED: OXYTOCIN INJ 10 UNITS/ML VIAL (J2590) As Ordered ONE (20:59)
[2020-03-24] MEDS ORDERED: PHENYLephrine 500MCG 5ML (100MCG/ML) SYRINGE As Ordered ONE (21:00)
[2020-03-24] MEDS ORDERED: ePHEDrine SULFATE 25 MG/5 ML(5MG/ML) SYRINGE As Ordered ONE (21:00)
[2020-03-24] MEDS ORDERED: ATROPINE SULF 0.4 MG/ML 1ML VIAL (J0461) As Ordered ONE (21:00)
[2020-03-24] MEDS ORDERED: ACETAMINOPHEN 1000MG 100ML IV BTL (OFIRMEV) (J0131 PER 10MG) As Ordered ONE (21:40)
[2020-03-24] MEDS ORDERED: fentaNYL 100 MCG/2 ML INJECTION (J3010) IV PRN (21:45)
[2020-03-24] MEDS ORDERED: oxyCODONE 5MG TAB PO PRN (21:45)
[2020-03-24] MEDS ORDERED: OXYTOCIN DRIP 30 UNITS in IV 1 EA IV SCH (21:46)
[2020-03-24] MEDS ORDERED: MEASLES,MUMPS,RUBELLA VACCINE INJ (MMR-II) (90707) SC SCH (22:00)
[2020-03-24] MEDS ORDERED: RHOGAM 300 MCG (1500 IU) INJ (J2790) IM SCH (22:00)
[2020-03-24] MEDS ORDERED: KETOROLAC 30 MG/ML 1ML VIAL IV SCH (22:00)
[2020-03-24] MEDS ORDERED: DOCUSATE SODIUM 100MG CAPSULE PO PRN (22:00)
--- NOTE | 2020-03-24 22:01 | ROOPDOC ---
[facility] Report Of Operation Report of Operation DATE OF PROCEDURE: 03/24/20 Report of operation Preoperative diagnosis: 38 weeks gestation, preeclampsia, prior section Postoperative diagnosis: Same Procedure: Repeat low transverse section Surgeon: Angela Rodriguez M.D. Asst.: Marco Antonio Kidd MD EBL: 500 ml. Urine output: 100 mL's. Findings: 7 lbs. 13 oz. male infant, Apgars 9 and 9 g normal uterus, fallopian tubes, ovaries. Operative summary: Patient taken to the operating room where spinal anesthesia was induced. She is prepped draped sterile fashion in the supine position. A Tolentino catheter was placed. A Pfannenstiel skin incision was made with scalpel. Fascia was incised and extended bilaterally. The peritoneal cavity was entered. A Mobius retractor was placed. A bladder flap was created. A curvilinear incision was made in lower uterine segment until Clear fluid was noted. The incision was extended manually. The infant was delivered from the vertex position without difficulty. Cord was double clamped and cut. The was handed waiting nurses. . The placenta was expressed. Uterus was closed with O- Vicryl in a running locked fashion. A second imbricating layer of Vicryl was placed. Peritoneum was closed with 2-0 Vicryl a running fashion. Fascia was closed with 0 Vicryl in running fashion. Skin was closed 4-0 Monocryl subcuticular sutures. Sponge, instrument and needle counts were correct. Marco Antonio Kidd MD, assisted with all aspects of the procedure. He helped each layer of the incision and deliver the fetus. ANGELA RODRIGUEZ MD Mar 24, 2020 22:01
[2020-03-25] VITALS (9 sets, daily range): BP systolic 111–145; BP diastolic 68–91
[2020-03-25] MEDS: PERCOCET 5MG/325MG TAB PO PRN ×4 (04:07→23:43)
[2020-03-25] MEDS: LR 1,000 ML IV SCH (06:26)
[2020-03-25 07:15] LABS: HEMATOCRIT 29.9 % (36.0-47.0); HEMOGLOBIN 9.2 g/dl (12.0-15.5); MEAN CORPUSCULAR HEMOGLOBIN 25.9 pg (27.0-33.0); MEAN CORPUSCULAR HGB CONC 30.8 g/dl (32.0-36.5); MEAN CORPUSCULAR VOLUME 84.2 fl (80.0-96.0); PLATELET COUNT, AUTOMATED 188 10^3/uL (150-450); RED BLOOD COUNT 3.55 10^6/uL (4.00-5.40); WHITE BLOOD COUNT 14.6 10^3/uL (4.0-10.0)
[2020-03-25] MEDS: PRENATAL VITAMINS CHEWABLE TABLET PO SCH (09:38)
[2020-03-25] MEDS: SIMETHICONE 80 MG CHEW TAB PO PRN (09:38)
[2020-03-26 02:00] VITALS: BP 131/83
[2020-03-26] MEDS: SIMETHICONE 80 MG CHEW TAB PO PRN (03:57)
[2020-03-26 06:00] VITALS: BP 128/82
[2020-03-26] MEDS: PRENATAL VITAMINS CHEWABLE TABLET PO SCH (08:27)
[2020-03-26] MEDS: PERCOCET 5MG/325MG TAB PO PRN ×2 (08:28→14:58)
[2020-03-26 08:30] VITALS: BP 128/82
[2020-03-26 10:00] VITALS: BP 118/78
[2020-03-26] MEDS ORDERED: PERCOCET PO ×2 (12:12→12:14)
--- NOTE | 2020-03-27 22:41 | IPN ---
PROGRESS NOTE DATE: 03/26/2020 This patient requested circumcision of her male . After discussing risks and benefits of circumcision, the medical and the nonmedical indications, the penile block and aftercare; expressed understanding of penile block, aftercare, and bleeding. Signed the consent form. All questions were answered, 20 minute discussion. We await clearance by the sewer bricklayer.
--- NOTE | 2020-03-28 11:12 | DS.PDOC ---
Discharge Summary General Date of Admission Mar 24, 2020 at 14:56 Date of Discharge 03/26/20 Attending Physician: ANGELA RODRIGUEZ MD Discharge Summary PROCEDURES PERFORMED DURING STAY: 1. Spinal anesthesia 2. section. ADMITTING DIAGNOSES: 1. Preeclampsia. DISCHARGE DIAGNOSES: 1. Preeclampsia status post repeat section. COMPLICATIONS/CHIEF COMPLAINT: Pre-Eclampsia. HISTORY OF PRESENT ILLNESS: Chirag is a 29-year-old 2 para 1 who presented with diagnosis of preeclampsia. She had a history of a previous section and desired repeat section at 38 weeks.HISTORY OF PRESENT ILLNESS: Mrs. Quezada is a 35-year-old 2 para 1 who presents at 37 weeks for repeat section. Her is unremarkable for intrauterine growth for suction. Patient did well following her section blood loss was 500 mL. Patient did well postoperatively by postoperative day #2 had met all discharge criteria is as discharged home in stable condition. DISCHARGE MEDICATIONS: Please see below. ALLERGIES: Please see below. PHYSICAL EXAMINATION ON DISCHARGE: VITAL SIGNS: Please see below. GENERAL: Well-appearing no acute distress ABDOMINAL EXAMINATION: Soft, appropriately tender. Incision was dressed EXTREMITIES: Negative for calf tenderness NEUROLOGICAL EXAMINATION: Grossly intact PSYCHIATRIC EXAMINATION: Appropriate LABORATORY DATA: Please see below. ACTIVITY: As tolerated. DIET: Regular DISCHARGE PLAN: Home DISCHARGE INSTRUCTIONS: 1. Remove dressing in 5-7 days 2. Remain on pelvic rest for 6 weeks 3. Reports severe pain heavy vaginal bleeding fever or incisional issues. DISCHARGE CONDITION: Stable. . Vital Signs/I&Os Vital Signs Date Time Temp Pulse Resp B/P (MAP) Pulse Ox O2 Delivery O2 Flow Rate FiO2 03/26/20 15:41 18 03/26/20 10:00 97.6 101 118/78 (91) 99 Room Air Laboratory Data Labs 24H Laboratory Tests 2 03/27/20 11:37: Lab Scanned Report Mat/Ped HIV Prevention & Care Program Discharge Medications Scheduled No.137/Iron/Folic Acd ( Vitamin Tablet) 1 Each Tablet, 1 TAB PO DAILY, (Reported) Scheduled PRN Oxycodone/Acetaminophen (Oxycodone-Acetaminophen 5-325) 1 Each Tablet, 1-2 TAB PO Q6H PRN for SEVERE PAIN (PS 8-10) Allergies Coded Allergies: adalimumab (Verified Allergy, Unknown, 02/07/19) hives ibuprofen (Verified Allergy, Unknown, 02/07/19) VIDAL [facility] MD. Mar 28, 2020 11:12
== END 2020-03-26 16:15 | disposition home or self-care (01) | DRG 773 ==
LOC: M LDO 12:49 → M LDI 14:56 → M OBS 23:56
PROVIDERS: ADMIT Obstetrics & Gynecology; ATTEND Specialist
PROC: 10D00Z1 Extraction of Products of Conception, Low, Open Approach (ICD-10-PCS; principal; 2020-03-24 20:55)
DX: O14.04 Mild to moderate pre-eclampsia, complicating childbirth (principal); O34.211 Maternal care for low transverse scar from previous cesarean delivery; Z3A.38 38 weeks gestation of pregnancy; Z37.0 Single live birth; O99.02 Anemia complicating childbirth; D64.9 Anemia, unspecified

== ENCOUNTER → 2020-04-11 | Outpatient (CLI) | payer SELFPAY ==
[~2020-04-11] MED LIST changes: +PERCOCET PO
== END ==
LOC: M LABSMTC 11:26
PROVIDERS: ATTEND Pediatrics
DX: Z20.822 Contact with and (suspected) exposure to COVID-19 (principal)

== ENCOUNTER → 2020-08-12 | Outpatient (CLI) | payer OTHER ==
--- NOTE | 2020-08-12 15:46 | REP ---
INDICATION: PAIN. COMPARISON: None. TECHNIQUE: Four views FINDINGS: There is no evidence of an acute fracture or destructive osseous lesion. IMPRESSION: No acute abnormality noted. Sign a <Electronically signed by William Lisa > 08/12/20 [id number]
== END ==
LOC: M WUC 14:54
PROVIDERS: ATTEND Physician Assistant
DX: M25.532 Pain in left wrist (principal)

== ENCOUNTER → 2021-02-10 | Outpatient (REF) | payer OTHER ==
[2021-02-10 17:46] LABS: ALT/SGPT 18 U/L (12-78); BILIRUBIN,TOTAL 0.3 MG/DL (0.2-1.0); BLOOD UREA NITROGEN 8 MG/DL (7-18); CALCIUM LEVEL 9.1 MG/DL (8.5-10.1); CARBON DIOXIDE LEVEL 23 MEQ/L (21-32); CHLORIDE LEVEL 110 MEQ/L (98-107); CREATININE FOR GFR 0.59 MG/DL (0.55-1.30); FERRITIN 46 NG/ML (8-252); FREE T4 1.29 NG/DL (0.76-1.46); GLOMERULAR FILTRATION RATE > 60.0 (>60); GLUCOSE, FASTING 72 MG/DL (70-100); IRON (FE) 25 UG/DL (50-170); PERCENT SATURATION 8.7 % (13.2-45.0); POTASSIUM SERUM 3.8 MEQ/L (3.5-5.1); SODIUM LEVEL 140 MEQ/L (136-145); TOTAL IRON BINDING CAPACITY 286 UG/DL (250-450); TOTAL PROTEIN 8.2 GM/DL (6.4-8.2)
[2021-02-10 17:49] LABS: FOLATE 5.8 NG/ML; VITAMIN B12 LEVEL 1155 PG/ML
[2021-02-10 18:06] LABS: BASO # 0.1 10^3/uL (0.0-0.2); BASO % 1.5 % (0.0-1.0); EOS # 0.3 10^3/uL (0.0-0.5); EOS % 4.1 % (0.0-3.0); HEMATOCRIT 36.5 % (36.0-47.0); HEMOGLOBIN 11.6 g/dl (12.0-15.5); LYMPH # 1.8 10^3/uL (1.5-5.0); LYMPH % 27.8 % (24.0-44.0); MEAN CORPUSCULAR HEMOGLOBIN 26.9 pg (27.0-33.0); MEAN CORPUSCULAR HGB CONC 31.8 g/dl (32.0-36.5); MEAN CORPUSCULAR VOLUME 84.7 fl (80.0-96.0); MONO # 0.4 10^3/uL (0.0-0.8); MONO % 5.5 % (2.0-8.0); NEUTROPHILS % 60.8 % (36.0-66.0); PLATELET COUNT, AUTOMATED 299 10^3/uL (150-450); RED BLOOD COUNT 4.31 10^6/uL (4.00-5.40); WHITE BLOOD COUNT 6.6 10^3/uL (4.0-10.0)
== END ==
LOC: M SFHCADAM 14:51
PROVIDERS: ATTEND Physician Assistant
DX: D64.89 Other specified anemias (principal); L65.9 Nonscarring hair loss, unspecified; M32.9 Systemic lupus erythematosus, unspecified; M08.3 Juvenile rheumatoid polyarthritis (seronegative)
CPT/HCPCS: 80053; 82306; 82607; 82728; 82746; 83550; 84439; 84443; 85025; G0463

== ENCOUNTER 2021-03-15 12:47 | Outpatient (RCR) | payer OTHER | END 2021-03-22 | LOC: M PT 12:47 | PROVIDERS: ATTEND Physician Assistant | DX: M08.3 Juvenile rheumatoid polyarthritis (seronegative) (principal) ==

== ENCOUNTER 2021-04-15 14:30 | Outpatient (RCR) | payer OTHER | END 2021-04-19 | LOC: M PT 14:30 | PROVIDERS: ATTEND Physician Assistant | DX: M08.3 Juvenile rheumatoid polyarthritis (seronegative) (principal) ==

== ENCOUNTER 2021-05-13 13:58 | Outpatient (RCR) | payer OTHER | END 2021-05-20 | LOC: M PT 13:58 | PROVIDERS: ATTEND Physician Assistant | DX: M08.3 Juvenile rheumatoid polyarthritis (seronegative) (principal) ==

== ENCOUNTER 2021-06-15 10:43 | Outpatient (RCR) | payer OTHER | END 2021-06-19 | LOC: M OT 10:43 → M PT 10:43 | PROVIDERS: ATTEND Family Medicine | DX: M08.3 Juvenile rheumatoid polyarthritis (seronegative) (principal) ==

== ENCOUNTER 2021-07-14 12:15 | Outpatient (RCR) | payer OTHER | END 2021-07-20 | LOC: M OT 12:15 | PROVIDERS: ATTEND Family Medicine | DX: M08.3 Juvenile rheumatoid polyarthritis (seronegative) (principal) ==

== ENCOUNTER → 2021-07-22 | Outpatient (REF) | payer OTHER ==
[2021-07-22 12:47] LABS: BASO # 0.1 10^3/uL (0.0-0.2); BASO % 1.3 % (0.0-1.0); EOS # 0.2 10^3/uL (0.0-0.5); EOS % 3.1 % (0.0-3.0); HEMATOCRIT 36.3 % (36.0-47.0); HEMOGLOBIN 11.4 g/dl (12.0-15.5); LYMPH # 1.3 10^3/uL (1.5-5.0); LYMPH % 23.1 % (24.0-44.0); MEAN CORPUSCULAR HEMOGLOBIN 27.5 pg (27.0-33.0); MEAN CORPUSCULAR HGB CONC 31.4 g/dl (32.0-36.5); MEAN CORPUSCULAR VOLUME 87.7 fl (80.0-96.0); MONO # 0.4 10^3/uL (0.0-0.8); MONO % 7.3 % (2.0-8.0); NEUTROPHILS # 3.5 10^3/uL (1.5-8.5); NEUTROPHILS % 64.5 % (36.0-66.0); PLATELET COUNT, AUTOMATED 224 10^3/uL (150-450); RED BLOOD COUNT 4.14 10^6/uL (4.00-5.40); WHITE BLOOD COUNT 5.5 10^3/uL (4.0-10.0)
[2021-07-22 12:55] LABS: APPEARANCE, URINE CLEAR (CLEAR); BACTERIA, URINE AUTO NEGATIVE (NEGATIVE); BILIRUBIN, URINE AUTO NEGATIVE (NEGATIVE); BLOOD, URINE BLOOD NEGATIVE (NEGATIVE); COLOR, URINE YELLOW (YELLOW); GLUCOSE, URINE (UA) AUTO NEGATIVE (NEGATIVE); KETONE, URINE AUTO NEGATIVE (NEGATIVE); LEUKOCYTE ESTERASE, URINE AUTO NEGATIVE (NEGATIVE); MUCUS, URINE SMALL (NEGATIVE); NITRITE, URINE AUTO NEGATIVE (NEGATIVE); PROTEIN, URINE AUTO NEGATIVE (NEGATIVE); RBC, URINE AUTO 0 /HPF (0-3); SPECIFIC GRAVITY URINE AUTO 1.014 (1.002-1.035); SQUAMOUS EPITHELIAL CELL UR AU 3 /HPF (0-6); UROBILINOGEN, URINE AUTO 0.2 mg/dL (0.0-2.0); WBC, URINE AUTO 1 /HPF (0-3)
[2021-07-22 13:04] LABS: TOTAL PROTEIN,RANDOM URINE 10.9 MG/DL (0.0-12.0)
[2021-07-22 13:05] LABS: ALBUMIN 4.2 GM/DL (3.2-5.2); ALT/SGPT 20 U/L (12-78); BILIRUBIN,DIRECT 0.1 MG/DL (0.0-0.2); BILIRUBIN,TOTAL 0.5 MG/DL (0.2-1.0); BLOOD UREA NITROGEN 8 MG/DL (7-18); C REACTIVE PROTEIN QUANTITATIV 1.51 MG/DL (0.00-0.30); CALCIUM LEVEL 9.3 MG/DL (8.5-10.1); CARBON DIOXIDE LEVEL 26 MEQ/L (21-32); CHLORIDE LEVEL 107 MEQ/L (98-107); COMPLEMENT C3 112 MG/DL (90-180); COMPLEMENT C4 20 MG/DL (10-40); CREATININE FOR GFR 0.58 MG/DL (0.55-1.30); GLOMERULAR FILTRATION RATE > 60.0 (>60); GLUCOSE, FASTING 83 MG/DL (70-100); IRON (FE) 29 UG/DL (50-170); MAGNESIUM LEVEL 2.1 MG/DL (1.8-2.4); PHOSPHORUS LEVEL 3.2 MG/DL (2.5-4.9); POTASSIUM SERUM 4.2 MEQ/L (3.5-5.1); SODIUM LEVEL 139 MEQ/L (136-145); TOTAL PROTEIN 7.9 GM/DL (6.4-8.2)
[2021-07-22 13:12] LABS: TOTAL 25(OH) VITAMIN D 19.4 NG/ML (30.0-100.0)
[2021-07-22 13:32] LABS: ERYTHROCYTE SEDIMENTATION RATE 22 mm/hr (0-20)
[2021-07-22 13:37] LABS: HEPATITIS B SURFACE ANTIBODY NEGATIVE (POSITIVE); HEPATITIS B SURFACE ANTIGEN NEGATIVE (NEGATIVE)
[2021-07-22 13:52] LABS: HEPATITIS C VIRUS ABY INDEX 0.1 INDEX (<0.8)
[2021-07-23 10:03] LABS: DRVV SCREEN 45.6 SEC; PTT LUPUS TYPE ANTICOAG SCREEN 1.2 (0-1.2)
[2021-07-23 10:13] LABS: DRVV CONFIRM 42.5 SEC; LUPUS CONFIRM RATIO 1.1
[2021-07-23 10:14] LABS: NORMALIZED RATIO 1.09 (0.00-1.20)
== END ==
LOC: M SFHCRHEU 10:38
PROVIDERS: ATTEND Internal Medicine
DX: M06.4 Inflammatory polyarthropathy (principal); M79.10 Myalgia, unspecified site; Z11.59 Encounter for screening for other viral diseases

== ENCOUNTER 2021-07-28 12:39 | Outpatient (RCR) | payer OTHER | END 2021-08-19 | LOC: M OT 12:39 → M PT 12:39 | PROVIDERS: ATTEND Family Medicine | DX: M08.3 Juvenile rheumatoid polyarthritis (seronegative) (principal) ==

== ENCOUNTER → 2021-08-02 | Outpatient (CLI) | payer OTHER | LOC: M RAD 16:38 | PROVIDERS: ATTEND Internal Medicine | DX: M08.09 Unspecified juvenile rheumatoid arthritis, multiple sites (principal); M85.88 Other specified disorders of bone density and structure, other site; M85.871 Other specified disorders of bone density and structure, right ankle and foot; M85.872 Other specified disorders of bone density and structure, left ankle and foot; M85.841 Other specified disorders of bone density and structure, right hand; M85.842 Other specified disorders of bone density and structure, left hand; M85.861 Other specified disorders of bone density and structure, right lower leg; M85.862 Other specified disorders of bone density and structure, left lower leg ==

== ENCOUNTER 2021-08-31 12:54 | Outpatient (RCR) | payer OTHER | END 2021-09-19 | LOC: M OT 12:54 | PROVIDERS: ATTEND Family Medicine | DX: M08.3 Juvenile rheumatoid polyarthritis (seronegative) (principal) ==

== ENCOUNTER → 2022-01-24 | Outpatient (REF) | payer OTHER ==
[2022-01-24 13:44] LABS: BASO % 0.6 % (0.0-1.0); EOS # 0.1 10^3/uL (0.0-0.5); EOS % 0.9 % (0.0-3.0); HEMATOCRIT 36.9 % (36.0-47.0); LYMPH # 1.2 10^3/uL (1.5-5.0); LYMPH % 17.2 % (24.0-44.0); MEAN CORPUSCULAR HEMOGLOBIN 29.9 pg (27.0-33.0); MEAN CORPUSCULAR HGB CONC 32.5 g/dl (32.0-36.5); MEAN CORPUSCULAR VOLUME 91.8 fl (80.0-96.0); MONO # 0.4 10^3/uL (0.0-0.8); MONO % 5.7 % (2.0-8.0); NEUTROPHILS # 5.1 10^3/uL (1.5-8.5); NEUTROPHILS % 75.2 % (36.0-66.0); PLATELET COUNT, AUTOMATED 192 10^3/uL (150-450); RED BLOOD COUNT 4.02 10^6/uL (4.00-5.40); WHITE BLOOD COUNT 6.8 10^3/uL (4.0-10.0)
[2022-01-24 13:58] LABS: ALBUMIN 3.6 G/DL (3.2-5.2); ALKALINE PHOSPHATASE 54 U/L (46-116); ALT/SGPT 13 U/L (7.0-40); AST/SGOT 13 U/L (<34); BILIRUBIN,DIRECT 0.1 MG/DL (<0.4); BILIRUBIN,TOTAL 0.4 MG/DL (0.3-1.2); BLOOD UREA NITROGEN 5 MG/DL (9-23); CALCIUM LEVEL 8.7 MG/DL (8.5-10.1); CARBON DIOXIDE LEVEL 24 MMOL/L (20-31); CHLORIDE LEVEL 104 MMOL/L (98-107); CREATININE FOR GFR 0.51 MG/DL (0.55-1.30); GLOMERULAR FILTRATION RATE > 60.0 (>60); GLUCOSE, FASTING 101 MG/DL (60-100); POTASSIUM SERUM 3.9 MMOL/L (3.5-5.1); SODIUM LEVEL 137 MMOL/L (136-145); TOTAL PROTEIN 6.8 G/DL (5.7-8.2)
[2022-01-24 14:54] LABS: ERYTHROCYTE SEDIMENTATION RATE 23 mm/hr (0-20)
== END ==
LOC: M SFHCRHEU 09:56
PROVIDERS: ATTEND Internal Medicine
DX: M08.09 Unspecified juvenile rheumatoid arthritis, multiple sites (principal)

== ENCOUNTER → 2022-02-09 | Outpatient (CLI) | payer OTHER ==
[2022-02-09 13:46] LABS: HEMATOCRIT 34.8 % (36.0-47.0); HEMOGLOBIN 11.1 g/dl (12.0-15.5); MEAN CORPUSCULAR HEMOGLOBIN 29.5 pg (27.0-33.0); MEAN CORPUSCULAR HGB CONC 31.9 g/dl (32.0-36.5); MEAN CORPUSCULAR VOLUME 92.6 fl (80.0-96.0); PLATELET COUNT, AUTOMATED 246 10^3/uL (150-450); RED BLOOD COUNT 3.76 10^6/uL (4.00-5.40); WHITE BLOOD COUNT 7.7 10^3/uL (4.0-10.0)
[2022-02-09 14:11] LABS: TOTAL PROTEIN,RANDOM URINE 21.9 MG/DL (0.0-14.0)
[2022-02-09 14:13] LABS: LDH LACTATE DEHYDROGENASE 175 U/L (120-246)
[2022-02-09 14:14] LABS: ALT/SGPT 17 U/L (7.0-40); AST/SGOT 18 U/L (<34); BILIRUBIN,TOTAL 0.3 MG/DL (0.3-1.2); CREATININE FOR GFR 0.42 MG/DL (0.55-1.30); GLOMERULAR FILTRATION RATE > 60.0 (>60)
[2022-02-09 14:15] LABS: CREATININE,RANDOM URINE 175.7 MG/DL
[2022-02-09 14:38] LABS: HIV 1&2 SCREEN CENTAUR NEGATIVE (NEGATIVE)
[2022-02-09 14:47] LABS: HEPATITIS C VIRUS ABY INDEX 0.1 INDEX (<0.8)
[2022-02-09 15:54] LABS: GC DNA AMPLIFICATION NEGATIVE (NEGATIVE)
[2022-02-10 16:08] LABS: CARDIOLIPIN IGA ANTIBODY <9 APL U/mL (0-11); CARDIOLIPIN IGG ANTIBODY <9 GPL U/mL (0-14); CARDIOLIPIN IGM ANTIBODY <9 MPL U/mL (0-12); SSA SJOGRENS A <0.2 AI (0.0-0.9); SSB SJOGRENS B <0.2 AI (0.0-0.9)
== END ==
LOC: M PLALAB 10:08
PROVIDERS: ATTEND Advanced Practice Midwife
DX: Z34.80 Encounter for supervision of other normal pregnancy, unspecified trimester (principal)

== ENCOUNTER 2022-02-15 18:14 | Emergency (ER) | payer OTHER ==
[~2022-02-15] VITALS: Ht 160 cm; Wt 69.9 kg
[2022-02-15 21:45] LABS: BASO # 0.1 10^3/uL (0.0-0.2); BASO % 0.7 % (0.0-1.0); EOS # 0.1 10^3/uL (0.0-0.5); EOS % 1.1 % (0.0-3.0); HEMATOCRIT 33.9 % (36.0-47.0); HEMOGLOBIN 11.3 g/dl (12.0-15.5); LYMPH # 1.7 10^3/uL (1.5-5.0); MEAN CORPUSCULAR HEMOGLOBIN 29.9 pg (27.0-33.0); MEAN CORPUSCULAR HGB CONC 33.3 g/dl (32.0-36.5); MEAN CORPUSCULAR VOLUME 89.7 fl (80.0-96.0); MONO # 0.5 10^3/uL (0.0-0.8); MONO % 5.5 % (2.0-8.0); NEUTROPHILS # 6.1 10^3/uL (1.5-8.5); NEUTROPHILS % 72.6 % (36.0-66.0); PLATELET COUNT, AUTOMATED 237 10^3/uL (150-450); RED BLOOD COUNT 3.78 10^6/uL (4.00-5.40); WHITE BLOOD COUNT 8.4 10^3/uL (4.0-10.0)
[2022-02-15 22:18] LABS: BLOOD UREA NITROGEN 8 MG/DL (9-23); CALCIUM LEVEL 8.3 MG/DL (8.5-10.1); CARBON DIOXIDE LEVEL 22 MMOL/L (20-31); CHLORIDE LEVEL 105 MMOL/L (98-107); CREATININE FOR GFR 0.42 MG/DL (0.55-1.30); GLOMERULAR FILTRATION RATE > 60.0 (>60); GLUCOSE, FASTING 80 MG/DL (60-100); POTASSIUM SERUM 3.7 MMOL/L (3.5-5.1); SODIUM LEVEL 136 MMOL/L (136-145)
[2022-02-15] MEDS ORDERED: NS 1,000 ML IV ONE (23:50)
[2022-02-15] MEDS ORDERED: ACETAMINOPHEN 1000MG 100ML IV BAG IV ONE (23:50)
[2022-02-16 00:42] LABS: HCG, SERUM QUANTITATIVE 31184.1 MIU/ML (<4.2)
[2022-02-16] MEDS ORDERED: MECLIZINE 25 MG TABLET PO ONE (01:45)
[2022-02-16] MEDS ORDERED: ONDANSETRON 4MG 2ML VIAL IV ONE (01:45)
[2022-02-16 03:30] VITALS: BP 124/84
== END 2022-02-16 03:46 | disposition home or self-care (01) ==
LOC: M ED 18:14
DX: O46.92 Antepartum hemorrhage, unspecified, second trimester (principal); N93.9 Abnormal uterine and vaginal bleeding, unspecified; I10 Essential (primary) hypertension; Z88.8 Allergy status to other drugs, medicaments and biological substances; Z3A.14 14 weeks gestation of pregnancy; Z79.810 Long term (current) use of selective estrogen receptor modulators (SERMs); Z79.899 Other long term (current) drug therapy
CPT/HCPCS: 76811; 76817; 80048; 84702; 85025; 86850; 86900; 86901; 93976; 96374; 96375; 99284; J0131; J2405

== ENCOUNTER → 2022-02-23 | Outpatient (CLI) | payer OTHER ==
[2022-02-23 15:05] LABS: HEMATOCRIT 31.8 % (36.0-47.0); HEMOGLOBIN 10.2 g/dl (12.0-15.5); MEAN CORPUSCULAR HEMOGLOBIN 30.4 pg (27.0-33.0); MEAN CORPUSCULAR HGB CONC 32.1 g/dl (32.0-36.5); MEAN CORPUSCULAR VOLUME 94.9 fl (80.0-96.0); PLATELET COUNT, AUTOMATED 179 10^3/uL (150-450); RED BLOOD COUNT 3.35 10^6/uL (4.00-5.40); WHITE BLOOD COUNT 6.8 10^3/uL (4.0-10.0)
== END ==
LOC: M PLALAB 10:14
PROVIDERS: ATTEND Advanced Practice Midwife
DX: O41.8X20 Other specified disorders of amniotic fluid and membranes, second trimester, not applicable or unspecified (principal); Z3A.00 Weeks of gestation of pregnancy not specified

== ENCOUNTER → 2022-04-15 | Outpatient (CLI) | payer OTHER | LOC: M WHC 07:05 | PROVIDERS: ATTEND Advanced Practice Midwife | DX: O41.8X20 Other specified disorders of amniotic fluid and membranes, second trimester, not applicable or unspecified (principal); Z3A.22 22 weeks gestation of pregnancy ==

== ENCOUNTER → 2022-05-05 | Outpatient (CLI) | payer OTHER ==
[2022-05-05 14:57] LABS: HEMATOCRIT 30.9 % (36.0-47.0); HEMOGLOBIN 10.1 g/dl (12.0-15.5); MEAN CORPUSCULAR HGB CONC 32.7 g/dl (32.0-36.5); MEAN CORPUSCULAR VOLUME 91.7 fl (80.0-96.0); PLATELET COUNT, AUTOMATED 207 10^3/uL (150-450); RED BLOOD COUNT 3.37 10^6/uL (4.00-5.40); WHITE BLOOD COUNT 8.3 10^3/uL (4.0-10.0)
== END ==
LOC: M PLALAB 10:01
PROVIDERS: ATTEND Advanced Practice Midwife
DX: O99.891 Other specified diseases and conditions complicating pregnancy (principal)

== ENCOUNTER 2022-05-18 12:50 | Outpatient (CLI) | payer OTHER ==
[~2022-05-18] VITALS: Ht 160 cm; Wt 74.7 kg
[2022-05-18 13:07] VITALS: BP 130/83
[2022-05-18] MEDS ORDERED: ASPI81CH33 PO (13:16)
[2022-05-18] MEDS ORDERED: IRON65TA2 PO (13:16)
[2022-05-18] MEDS ORDERED: HOME MED LIST COMPLETE! XX SCH (13:20)
[2022-05-18 13:22] VITALS: BP 122/72
[2022-05-18] MEDS ORDERED: ACETAMINOPHEN 500 MG TAB PO ONE (14:20)
[2022-05-18 14:30] LABS: HEMATOCRIT 31.9 % (36.0-47.0); HEMOGLOBIN 10.3 g/dl (12.0-15.5); MEAN CORPUSCULAR HEMOGLOBIN 28.9 pg (27.0-33.0); MEAN CORPUSCULAR HGB CONC 32.3 g/dl (32.0-36.5); MEAN CORPUSCULAR VOLUME 89.6 fl (80.0-96.0); PLATELET COUNT, AUTOMATED 180 10^3/uL (150-450); RED BLOOD COUNT 3.56 10^6/uL (4.00-5.40)
[2022-05-18 14:39] VITALS: BP 117/77
[2022-05-18 14:53] LABS: INR 0.96
[2022-05-18 14:54] LABS: PARTIAL THROMBOPLASTIN TIME 29.2 SECONDS (24.8-34.2)
[2022-05-18 16:10] VITALS: BP 111/67
== END 2022-05-18 18:21 | disposition home or self-care (01) ==
LOC: M LDO 12:50
PROVIDERS: ATTEND Advanced Practice Midwife
DX: O9A.212 Injury, poisoning and certain other consequences of external causes complicating pregnancy, second trimester (principal); S20.223A Contusion of bilateral back wall of thorax, initial encounter; W18.2XXA Fall in (into) shower or empty bathtub, initial encounter; Y92.009 Unspecified place in unspecified non-institutional (private) residence as the place of occurrence of the external cause; O45.92 Premature separation of placenta, unspecified, second trimester; Z3A.26 26 weeks gestation of pregnancy; Z88.8 Allergy status to other drugs, medicaments and biological substances
CPT/HCPCS: 36415; 59025; 76816; 76820; 85027; 85384; 85460; 85610; 85730; G0463

== ENCOUNTER 2022-05-30 06:18 | Outpatient (CLI) | payer OTHER ==
[~2022-05-30] VITALS: Ht 160 cm; Wt 76.3 kg
[2022-05-30] VITALS (7 sets, daily range): BP systolic 111–156; BP diastolic 61–98
[~2022-05-30 06:18] MED LIST changes: +ASPI81CH33 PO; +IRON65TA2 PO
[2022-05-30] MEDS ORDERED: HOME MED LIST COMPLETE! XX SCH (07:10)
[2022-05-30] MEDS ORDERED: METR-265 PO (08:24)
[2022-05-30 09:02] LABS: HEMATOCRIT 30.5 % (36.0-47.0); HEMOGLOBIN 9.9 g/dl (12.0-15.5); MEAN CORPUSCULAR HEMOGLOBIN 28.7 pg (27.0-33.0); MEAN CORPUSCULAR HGB CONC 32.5 g/dl (32.0-36.5); MEAN CORPUSCULAR VOLUME 88.4 fl (80.0-96.0); PLATELET COUNT, AUTOMATED 210 10^3/uL (150-450); RED BLOOD COUNT 3.45 10^6/uL (4.00-5.40)
[2022-05-30] MEDS ORDERED: LR 1,000 ML IV SCH (10:00)
[2022-05-30] MEDS ORDERED: BETAMETHASONE SOLUSPAN 6MG/ML 5ML VIAL IM ONE (10:00)
[2022-05-30] MEDS ORDERED: AZITHROMYCIN 250MG TABLET PO ONE (10:00)
[2022-05-30] MEDS ORDERED: MAG Sulf (L&D) 4 GM/100 ML 4 GM in IV 1 EA IV ONE (10:25)
[2022-05-30] MEDS ORDERED: MAG Sulf (OBGYN) 20GM/500ML 20,000 MG in IV 1 EA IV SCH (10:45)
[2022-05-30 10:49] LABS: GC DNA AMPLIFICATION NEGATIVE (NEGATIVE)
[2022-05-30] MEDS ORDERED: AMPICILLIN SOD 2 GM in D5W MINI-BAG PLUS 100 ML IV SCH (11:00)
== END 2022-05-30 11:50 ==
LOC: M LDO 06:18
PROVIDERS: ATTEND Obstetrics & Gynecology
DX: O42.913 Preterm premature rupture of membranes, unspecified as to length of time between rupture and onset of labor, third trimester (principal); Z3A.28 28 weeks gestation of pregnancy; O34.211 Maternal care for low transverse scar from previous cesarean delivery; O45.93 Premature separation of placenta, unspecified, third trimester; Z88.8 Allergy status to other drugs, medicaments and biological substances; Z87.59 Personal history of other complications of pregnancy, childbirth and the puerperium
CPT/HCPCS: 59025; 76815; 76820; 85027; 87081; 87635; 87661; 87810; 87850; 96372; G0463; J0290; J0702; J3475

== ENCOUNTER → 2022-10-17 | Outpatient (REF) | payer OTHER ==
[~2022-10-17] MED LIST changes: +METR-265 PO
[2022-10-17 17:15] LABS: BASO # 0.1 10^3/uL (0.0-0.2); BASO % 1.1 % (0.0-1.0); EOS # 0.4 10^3/uL (0.0-0.5); EOS % 4.6 % (0.0-3.0); HEMATOCRIT 34.9 % (36.0-47.0); HEMOGLOBIN 11.1 g/dl (12.0-15.5); LYMPH # 1.7 10^3/uL (1.5-5.0); LYMPH % 21.5 % (24.0-44.0); MEAN CORPUSCULAR HEMOGLOBIN 27.1 pg (27.0-33.0); MEAN CORPUSCULAR HGB CONC 31.8 g/dl (32.0-36.5); MEAN CORPUSCULAR VOLUME 85.1 fl (80.0-96.0); MONO # 0.5 10^3/uL (0.0-0.8); MONO % 6.5 % (2.0-8.0); NEUTROPHILS # 5.3 10^3/uL (1.5-8.5); NEUTROPHILS % 65.9 % (36.0-66.0); PLATELET COUNT, AUTOMATED 277 10^3/uL (150-450)
[2022-10-17 17:31] LABS: ERYTHROCYTE SEDIMENTATION RATE 15 mm/hr (0-20)
[2022-10-17 17:41] LABS: ALKALINE PHOSPHATASE 76 U/L (46-116); ALT/SGPT 21 U/L (7.0-40); AST/SGOT 12 U/L (<34); BILIRUBIN,DIRECT 0.2 MG/DL (<0.4); BILIRUBIN,TOTAL 0.5 MG/DL (0.3-1.2); BLOOD UREA NITROGEN 12 MG/DL (9-23); CALCIUM LEVEL 8.8 MG/DL (8.5-10.1); CARBON DIOXIDE LEVEL 25 MMOL/L (20-31); CHLORIDE LEVEL 106 MMOL/L (98-107); CREATININE FOR GFR 0.52 MG/DL (0.55-1.30); GLOMERULAR FILTRATION RATE > 60.0 (>60); GLUCOSE, FASTING 71 MG/DL (60-100); IRON (FE) 38 UG/DL (50-170); SODIUM LEVEL 138 MMOL/L (136-145); TOTAL PROTEIN 7.2 G/DL (5.7-8.2)
== END ==
LOC: M SFHCRHEU 11:03
PROVIDERS: ATTEND Internal Medicine
DX: M08.09 Unspecified juvenile rheumatoid arthritis, multiple sites (principal); E55.9 Vitamin D deficiency, unspecified; D50.9 Iron deficiency anemia, unspecified
CPT/HCPCS: 80048; 80076; 82306; 83540; 85025; 85652; 86140; G0463

== ENCOUNTER 2023-09-09 12:08 | Inpatient (IN) | payer OTHER ==
[~2023-09-09] VITALS: Ht 157.5 cm; Wt 93.4 kg
[2023-09-09] VITALS (19 sets, daily range): BP systolic 109–134; BP diastolic 59–88; TEMP 97.5–98; O2SAT 96–99
[~2023-09-09 12:08] MED LIST changes: +CELE0.09 PO; -CELE1CAP9 PO
[2023-09-09] MEDS ORDERED: ISOVUE-370 76% 100ML VIAL As Ordered ONE (12:24)
[2023-09-09 12:38] LABS: BASO # 0.1 10^3/uL (0.0-0.2); BASO % 1.3 % (0.0-1.0); EOS # 0.6 10^3/uL (0.0-0.5); HEMATOCRIT 35.6 % (36.0-47.0); LYMPH % 25.7 % (24.0-44.0); MEAN CORPUSCULAR HGB CONC 33.7 g/dl (32.0-36.5); MONO # 0.5 10^3/uL (0.0-0.8); MONO % 6.9 % (2.0-8.0); NEUTROPHILS # 4.6 10^3/uL (1.5-8.5); NEUTROPHILS % 57.8 % (36.0-66.0); PLATELET COUNT, AUTOMATED 281 10^3/uL (150-450); RED BLOOD COUNT 4.14 10^6/uL (4.00-5.40); WHITE BLOOD COUNT 7.9 10^3/uL (4.0-10.0)
[2023-09-09 12:49] LABS: INR 1.09; PROTHROMBIN TIME 13.8 SECONDS (12.5-14.5)
[2023-09-09] MEDS: TENECTEPLASE 50 MG/10 ML VIAL IVP ONE (13:47)
[2023-09-09] MEDS: SODIUM CHLORIDE 0.9% INJ 10 ML SYR IV ONE ×2 (13:47)
[2023-09-09] MEDS ORDERED: ACET-897 PO (14:04)
[2023-09-09] MEDS ORDERED: NAPR-832 PO (14:04)
[2023-09-09] MEDS ORDERED: NAPR500T6 PO (14:21)
[2023-09-09] MEDS ORDERED: HOME MED LIST COMPLETE! XX SCH (14:25)
[2023-09-09 15:05] LABS: CHOLESTEROL RISK RATIO 4.04 (<5); HDL CHOLESTEROL 32.9 MG/DL (>40); LDL CHOLESTEROL 68.7 MG/DL (<100); NON-HDL-C 100.1 MG/DL
[2023-09-09 15:40] LABS: HEMOGLOBIN A1c 4.7 % (4.0-6.0)
[2023-09-09] MEDS: PANTOPRAZOLE 40MG VIAL IV SCH (20:02)
[2023-09-10] VITALS (21 sets, daily range): BP systolic 96–149; BP diastolic 63–86; TEMP 97.3–99.1; O2SAT 95–100
[2023-09-10 06:46] LABS: ALBUMIN 3.7 G/DL (3.2-5.2); ALKALINE PHOSPHATASE 62 U/L (46-116); ALT/SGPT 23 U/L (7.0-40); AST/SGOT 16 U/L (<34); BILIRUBIN,TOTAL 0.8 MG/DL (0.3-1.2); BLOOD UREA NITROGEN 11 MG/DL (9-23); CALCIUM LEVEL 8.9 MG/DL (8.5-10.1); CARBON DIOXIDE LEVEL 24 MMOL/L (20-31); CHLORIDE LEVEL 109 MMOL/L (98-107); CREATININE FOR GFR 0.65 MG/DL (0.55-1.30); GLOMERULAR FILTRATION RATE > 60.0 (>60); GLUCOSE, FASTING 84 MG/DL (60-100); MAGNESIUM LEVEL 2.2 MG/DL (1.8-2.4); PHOSPHORUS LEVEL 3.6 MG/DL (2.5-4.9); POTASSIUM SERUM 3.9 MMOL/L (3.5-5.1); SODIUM LEVEL 141 MMOL/L (136-145); TOTAL PROTEIN 6.7 G/DL (5.7-8.2)
[2023-09-10 06:48] LABS: VITAMIN B12 LEVEL 869 PG/ML (211-911)
[2023-09-10] MEDS: D5W/LR 1,000 ML IV SCH ×2 (09:20→16:30)
[2023-09-10 14:21] LABS: TOTAL 25(OH) VITAMIN D 32.8 NG/ML (20.0-100.0)
[2023-09-10] MEDS: ATORVASTATIN 20 MG TAB PO SCH (20:55)
[2023-09-11] VITALS (13 sets, daily range): BP systolic 102–104; BP diastolic 59–63; TEMP 97.3–97.4; O2SAT 96–99
[2023-09-11 06:29] LABS: BASO # 0.1 10^3/uL (0.0-0.2); BASO % 1.2 % (0.0-1.0); EOS # 0.4 10^3/uL (0.0-0.5); EOS % 6.6 % (0.0-3.0); HEMATOCRIT 33.3 % (36.0-47.0); HEMOGLOBIN 10.8 g/dl (12.0-15.5); LYMPH # 1.3 10^3/uL (1.5-5.0); LYMPH % 23.6 % (24.0-44.0); MEAN CORPUSCULAR HEMOGLOBIN 28.3 pg (27.0-33.0); MEAN CORPUSCULAR HGB CONC 32.4 g/dl (32.0-36.5); MEAN CORPUSCULAR VOLUME 87.4 fl (80.0-96.0); MONO # 0.4 10^3/uL (0.0-0.8); MONO % 6.9 % (2.0-8.0); NEUTROPHILS # 3.5 10^3/uL (1.5-8.5); NEUTROPHILS % 61.3 % (36.0-66.0); PLATELET COUNT, AUTOMATED 247 10^3/uL (150-450); RED BLOOD COUNT 3.81 10^6/uL (4.00-5.40); WHITE BLOOD COUNT 5.6 10^3/uL (4.0-10.0)
[2023-09-11 07:06] LABS: ALBUMIN 3.2 G/DL (3.2-5.2); ALKALINE PHOSPHATASE 53 U/L (46-116); ALT/SGPT 21 U/L (7.0-40); AST/SGOT 16 U/L (<34); BILIRUBIN,TOTAL 0.6 MG/DL (0.3-1.2); BLOOD UREA NITROGEN 8 MG/DL (9-23); CALCIUM LEVEL 8.4 MG/DL (8.5-10.1); CARBON DIOXIDE LEVEL 24 MMOL/L (20-31); CHLORIDE LEVEL 111 MMOL/L (98-107); CREATININE FOR GFR 0.61 MG/DL (0.55-1.30); GLOMERULAR FILTRATION RATE > 60.0 (>60); GLUCOSE, FASTING 104 MG/DL (60-100); POTASSIUM SERUM 3.9 MMOL/L (3.5-5.1); SODIUM LEVEL 140 MMOL/L (136-145); TOTAL PROTEIN 6.1 G/DL (5.7-8.2)
[2023-09-11] MEDS: PANTOPRAZOLE 40MG TAB (PROTONIX) PO SCH (08:55)
[2023-09-11] MEDS: ASPIRIN 81MG CHEW TABLET PO SCH (08:55)
[2023-09-11] MEDS: predniSONE 20 MG TAB PO SCH (08:56)
[2023-09-11] MEDS: valACYclovir HCL 500 MG TAB PO SCH (09:54)
[2023-09-11] MEDS ORDERED: PANT40TA29 PO (11:05)
[2023-09-11] MEDS ORDERED: PRED10TA2 PO (11:05)
[2023-09-11] MEDS ORDERED: VALA500T5 PO (11:05)
== END 2023-09-11 12:04 | disposition home or self-care (01) | DRG 93 ==
LOC: M ED 12:08 → EDBD 12:08 → M ED INP 14:23 → M ICU 15:17 → M PCU 09-10 18:43
PROVIDERS: ADMIT Internal Medicine Pulmonary Disease; ATTEND Internal Medicine Pulmonary Disease
DX: R29.810 Facial weakness (principal); E66.9 Obesity, unspecified; M06.9 Rheumatoid arthritis, unspecified; R47.81 Slurred speech; M62.81 Muscle weakness (generalized); Z88.8 Allergy status to other drugs, medicaments and biological substances; Z79.899 Other long term (current) drug therapy

== ENCOUNTER → 2023-09-14 | Outpatient (CLI) | payer OTHER ==
[~2023-09-14] MED LIST changes: +ACET-897 PO; +NAPR-832 PO; +NAPR500T6 PO; +PANT40TA29 PO; +PRED10TA2 PO; +VALA500T5 PO
== END ==
LOC: M LAB 15:57
PROVIDERS: ATTEND Psychiatry & Neurology Neurology
DX: G51.0 Bell's palsy (principal)

== ENCOUNTER → 2023-12-05 | Outpatient (REF) | payer OTHER ==
[~2023-12-05] MED LIST changes: +NAPR-1405 PO; -NAPR500T6 PO
[2023-12-05 13:47] LABS: BASO # 0.1 10^3/uL (0.0-0.2); BASO % 1.3 % (0.0-1.0); EOS # 0.6 10^3/uL (0.0-0.5); EOS % 7.9 % (0.0-3.0); HEMATOCRIT 37.2 % (36.0-47.0); LYMPH # 1.2 10^3/uL (1.5-5.0); LYMPH % 16.7 % (24.0-44.0); MEAN CORPUSCULAR HEMOGLOBIN 28.1 pg (27.0-33.0); MEAN CORPUSCULAR HGB CONC 32.3 g/dl (32.0-36.5); MEAN CORPUSCULAR VOLUME 87.1 fl (80.0-96.0); MONO # 0.5 10^3/uL (0.0-0.8); MONO % 7.5 % (2.0-8.0); NEUTROPHILS # 4.6 10^3/uL (1.5-8.5); NEUTROPHILS % 66.3 % (36.0-66.0); PLATELET COUNT, AUTOMATED 270 10^3/uL (150-450); RED BLOOD COUNT 4.27 10^6/uL (4.00-5.40)
[2023-12-05 13:52] LABS: IRON (FE) 42 UG/DL (50-170); PERCENT SATURATION 13.3 % (13.2-45.0); TOTAL IRON BINDING CAPACITY 316 UG/DL (250-425)
[2023-12-05 13:53] LABS: ALBUMIN 4.3 G/DL (3.2-5.2); ALKALINE PHOSPHATASE 71 U/L (46-116); ALT/SGPT 26 U/L (7.0-40); AST/SGOT 21 U/L (<34); BILIRUBIN,DIRECT 0.1 MG/DL (<0.4); BILIRUBIN,TOTAL 0.4 MG/DL (0.3-1.2); BLOOD UREA NITROGEN 9 MG/DL (9-23); CALCIUM LEVEL 9.2 MG/DL (8.5-10.1); CARBON DIOXIDE LEVEL 27 MMOL/L (20-31); CHLORIDE LEVEL 108 MMOL/L (98-107); FERRITIN 34.7 NG/ML (7.3-270.7); GLOMERULAR FILTRATION RATE > 60.0 (>60); GLUCOSE, FASTING 93 MG/DL (60-100); POTASSIUM SERUM 4.4 MMOL/L (3.5-5.1); SODIUM LEVEL 139 MMOL/L (136-145); TOTAL 25(OH) VITAMIN D 29.6 NG/ML (20.0-100.0); TOTAL PROTEIN 7.4 G/DL (5.7-8.2)
[2023-12-05 13:58] LABS: ERYTHROCYTE SEDIMENTATION RATE 19 mm/hr (0-20)
== END ==
LOC: M SFHCRHEU 11:53
PROVIDERS: ATTEND Internal Medicine
DX: M05.79 Rheumatoid arthritis with rheumatoid factor of multiple sites without organ or systems involvement (principal); D50.9 Iron deficiency anemia, unspecified; E55.9 Vitamin D deficiency, unspecified

== ENCOUNTER → 2024-01-02 | Outpatient (CLI) | payer OTHER ==
[2024-01-02 13:01] LABS: BASO # 0.1 10^3/uL (0.0-0.2); BASO % 0.8 % (0.0-1.0); EOS # 0.1 10^3/uL (0.0-0.5); EOS % 1.5 % (0.0-3.0); HEMATOCRIT 38.1 % (36.0-47.0); HEMOGLOBIN 12.4 g/dl (12.0-15.5); LYMPH # 1.1 10^3/uL (1.5-5.0); LYMPH % 14.2 % (24.0-44.0); MEAN CORPUSCULAR HEMOGLOBIN 28.9 pg (27.0-33.0); MEAN CORPUSCULAR HGB CONC 32.5 g/dl (32.0-36.5); MEAN CORPUSCULAR VOLUME 88.8 fl (80.0-96.0); MONO # 0.3 10^3/uL (0.0-0.8); MONO % 3.6 % (2.0-8.0); NEUTROPHILS % 79.5 % (36.0-66.0); PLATELET COUNT, AUTOMATED 239 10^3/uL (150-450); RED BLOOD COUNT 4.29 10^6/uL (4.00-5.40); WHITE BLOOD COUNT 7.6 10^3/uL (4.0-10.0)
[2024-01-02 13:06] LABS: ERYTHROCYTE SEDIMENTATION RATE 7 mm/hr (0-20)
[2024-01-02 13:27] LABS: ALBUMIN 3.9 G/DL (3.2-5.2); ALKALINE PHOSPHATASE 63 U/L (35-104); ALT/SGPT 20 U/L (7.0-40); AST/SGOT 11 U/L (<34); BILIRUBIN,DIRECT 0.1 MG/DL (<0.4); BILIRUBIN,TOTAL 0.4 MG/DL (0.3-1.2); BLOOD UREA NITROGEN 8 MG/DL (9-23); CALCIUM LEVEL 8.9 MG/DL (8.5-10.1); CARBON DIOXIDE LEVEL 26 MMOL/L (20-31); CHLORIDE LEVEL 108 MMOL/L (98-107); CREATININE FOR GFR 0.67 MG/DL (0.55-1.30); GLOMERULAR FILTRATION RATE > 60.0 (>60); GLUCOSE, FASTING 110 MG/DL (60-100); POTASSIUM SERUM 4.1 MMOL/L (3.5-5.1); SODIUM LEVEL 140 MMOL/L (136-145); TOTAL PROTEIN 7.5 G/DL (5.7-8.2)
== END ==
LOC: M LAB 12:28
PROVIDERS: ATTEND Internal Medicine
DX: M05.79 Rheumatoid arthritis with rheumatoid factor of multiple sites without organ or systems involvement (principal)

== ENCOUNTER → 2024-02-27 | Outpatient (CLI) | payer OTHER ==
[2024-02-27 14:41] LABS: BASO # 0.1 10^3/uL (0.0-0.2); BASO % 0.7 % (0.0-1.0); EOS # 0.1 10^3/uL (0.0-0.5); EOS % 1.1 % (0.0-3.0); HEMATOCRIT 38.5 % (36.0-47.0); HEMOGLOBIN 12.7 g/dl (12.0-15.5); LYMPH # 1.4 10^3/uL (1.5-5.0); LYMPH % 17.5 % (24.0-44.0); MEAN CORPUSCULAR HEMOGLOBIN 29.7 pg (27.0-33.0); MONO # 0.4 10^3/uL (0.0-0.8); MONO % 4.6 % (2.0-8.0); NEUTROPHILS # 6.1 10^3/uL (1.5-8.5); NEUTROPHILS % 75.7 % (36.0-66.0); PLATELET COUNT, AUTOMATED 241 10^3/uL (150-450); RED BLOOD COUNT 4.28 10^6/uL (4.00-5.40)
[2024-02-27 15:10] LABS: ALBUMIN 3.8 G/DL (3.2-5.2); ALKALINE PHOSPHATASE 67 U/L (35-104); ALT/SGPT 48 U/L (7.0-40); AST/SGOT 33 U/L (<34); BILIRUBIN,DIRECT 0.2 MG/DL (<0.4); BILIRUBIN,TOTAL 0.4 MG/DL (0.3-1.2); BLOOD UREA NITROGEN 9 MG/DL (9-23); C REACTIVE PROTEIN QUANTITATIV 1.12 MG/DL (<1.0); CALCIUM LEVEL 9.1 MG/DL (8.5-10.1); CARBON DIOXIDE LEVEL 28 MMOL/L (20-31); CHLORIDE LEVEL 106 MMOL/L (98-107); CREATININE FOR GFR 0.64 MG/DL (0.55-1.30); GLOMERULAR FILTRATION RATE > 60.0 (>60); GLUCOSE, FASTING 105 MG/DL (60-100); POTASSIUM SERUM 3.9 MMOL/L (3.5-5.1); SODIUM LEVEL 143 MMOL/L (136-145); TOTAL PROTEIN 7.4 G/DL (5.7-8.2)
[2024-02-27 20:27] LABS: ERYTHROCYTE SEDIMENTATION RATE 20 mm/hr (0-20)
== END ==
LOC: M LAB 13:47
PROVIDERS: ATTEND Internal Medicine
DX: M05.79 Rheumatoid arthritis with rheumatoid factor of multiple sites without organ or systems involvement (principal)

== ENCOUNTER 2024-03-25 18:44 | Emergency (ER) | payer OTHER ==
[~2024-03-25] VITALS: Ht 160 cm; Wt 70.5 kg
[2024-03-25] MEDS ORDERED: ISOVUE-370 76% 100ML VIAL As Ordered ONE (19:00)
[2024-03-25 19:22] LABS: BASO # 0.1 10^3/uL (0.0-0.2); BASO % 1.2 % (0.0-1.0); EOS # 0.2 10^3/uL (0.0-0.5); EOS % 2.1 % (0.0-3.0); HEMATOCRIT 36.9 % (36.0-47.0); HEMOGLOBIN 12.2 g/dl (12.0-15.5); LYMPH # 2.2 10^3/uL (1.5-5.0); LYMPH % 25.7 % (24.0-44.0); MEAN CORPUSCULAR HEMOGLOBIN 29.9 pg (27.0-33.0); MEAN CORPUSCULAR HGB CONC 33.1 g/dl (32.0-36.5); MEAN CORPUSCULAR VOLUME 90.4 fl (80.0-96.0); MONO # 0.7 10^3/uL (0.0-0.8); MONO % 8.3 % (2.0-8.0); NEUTROPHILS # 5.3 10^3/uL (1.5-8.5); NEUTROPHILS % 62.5 % (36.0-66.0); PLATELET COUNT, AUTOMATED 256 10^3/uL (150-450); RED BLOOD COUNT 4.08 10^6/uL (4.00-5.40); WHITE BLOOD COUNT 8.5 10^3/uL (4.0-10.0)
[2024-03-25 19:36] LABS: CK-MB VALUE MASS < 1.0 NG/ML (<3.6); INR 0.98; PARTIAL THROMBOPLASTIN TIME 29.3 SECONDS (24.8-34.2); PROTHROMBIN TIME 13.3 SECONDS (12.5-14.5)
[2024-03-25 19:37] LABS: BLOOD UREA NITROGEN 9 MG/DL (9-23); CALCIUM LEVEL 8.8 MG/DL (8.5-10.1); CARBON DIOXIDE LEVEL 26 MMOL/L (20-31); CHLORIDE LEVEL 107 MMOL/L (98-107); CPK CREATINE PHOSPHOKINASE 68 U/L (34-145); CREATININE FOR GFR 0.69 MG/DL (0.55-1.30); GLOMERULAR FILTRATION RATE > 60.0 (>60); GLUCOSE, FASTING 103 MG/DL (60-100); MB/CK RELATIVE INDEX 1.47 (< OR =4); POTASSIUM SERUM 3.6 MMOL/L (3.5-5.1); SODIUM LEVEL 142 MMOL/L (136-145)
[2024-03-25 19:51] LABS: HCG, SERUM QUALITATIVE NEGATIVE (NEGATIVE)
[2024-03-25] MEDS: ASPIRIN 325 MG TAB PO ONE (20:03)
[2024-03-25] MEDS ORDERED: PRED20TA PO (22:20)
[2024-03-25 22:30] VITALS: BP 130/83; TEMP 98.4; O2SAT 99
[2024-03-25] MEDS: predniSONE 20 MG TAB PO ONE (22:47)
== END 2024-03-25 22:55 | disposition home or self-care (01) ==
LOC: M ED 18:44 → EDBD 18:44 → M ED 22:55
DX: G51.0 Bell's palsy (principal); E55.9 Vitamin D deficiency, unspecified; F32.A Depression, unspecified; Z88.8 Allergy status to other drugs, medicaments and biological substances; Z79.82 Long term (current) use of aspirin; Z79.52 Long term (current) use of systemic steroids; Z79.1 Long term (current) use of non-steroidal anti-inflammatories (NSAID); Z79.899 Other long term (current) drug therapy
CPT/HCPCS: 36415; 70450; 70496; 70498; 70551; 71045; 80047; 80048; 82550; 82553; 84484; 84703; 85025; 85610; 85730; 86618; 87486; 87581; 87633; 87798; 93005; 93041; 94760; 99285; J7512; Q9967

== ENCOUNTER → 2024-04-15 | Outpatient (CLI) | payer OTHER ==
[~2024-04-15] MED LIST changes: +PRED20TA PO
[2024-04-15 11:27] LABS: BASO # 0.1 10^3/uL (0.0-0.2); EOS # 0.2 10^3/uL (0.0-0.5); EOS % 2.8 % (0.0-3.0); HEMATOCRIT 39.1 % (36.0-47.0); HEMOGLOBIN 12.9 g/dl (12.0-15.5); LYMPH # 1.1 10^3/uL (1.5-5.0); LYMPH % 15.1 % (24.0-44.0); MEAN CORPUSCULAR HEMOGLOBIN 30.6 pg (27.0-33.0); MEAN CORPUSCULAR VOLUME 92.7 fl (80.0-96.0); MONO # 0.4 10^3/uL (0.0-0.8); MONO % 5.4 % (2.0-8.0); NEUTROPHILS # 5.3 10^3/uL (1.5-8.5); NEUTROPHILS % 75.1 % (36.0-66.0); PLATELET COUNT, AUTOMATED 210 10^3/uL (150-450); RED BLOOD COUNT 4.22 10^6/uL (4.00-5.40); WHITE BLOOD COUNT 7.1 10^3/uL (4.0-10.0)
[2024-04-15 11:37] LABS: ERYTHROCYTE SEDIMENTATION RATE 5 mm/hr (0-20)
[2024-04-15 12:09] LABS: C REACTIVE PROTEIN QUANTITATIV < 0.50 MG/DL (<1.0)
[2024-04-15 12:10] LABS: ALKALINE PHOSPHATASE 51 U/L (35-104); ALT/SGPT 30 U/L (7.0-40); AST/SGOT 17 U/L (<34); BILIRUBIN,DIRECT 0.2 MG/DL (<0.4); BILIRUBIN,TOTAL 0.6 MG/DL (0.3-1.2); BLOOD UREA NITROGEN 7 MG/DL (9-23); CALCIUM LEVEL 8.8 MG/DL (8.5-10.1); CARBON DIOXIDE LEVEL 27 MMOL/L (20-31); CHLORIDE LEVEL 106 MMOL/L (98-107); GLOMERULAR FILTRATION RATE > 60.0 (>60); GLUCOSE, FASTING 91 MG/DL (60-100); POTASSIUM SERUM 4.1 MMOL/L (3.5-5.1); SODIUM LEVEL 142 MMOL/L (136-145); TOTAL PROTEIN 7.1 G/DL (5.7-8.2)
== END ==
LOC: M LAB 09:35
PROVIDERS: ATTEND Internal Medicine
DX: M05.79 Rheumatoid arthritis with rheumatoid factor of multiple sites without organ or systems involvement (principal)

== ENCOUNTER → 2024-05-06 | Outpatient (CLI) | payer OTHER ==
[2024-05-06 10:49] LABS: BASO # 0.1 10^3/uL (0.0-0.2); BASO % 0.9 % (0.0-1.0); EOS # 0.1 10^3/uL (0.0-0.5); EOS % 1.3 % (0.0-3.0); HEMOGLOBIN 12.2 g/dl (12.0-15.5); LYMPH # 0.8 10^3/uL (1.5-5.0); MEAN CORPUSCULAR HEMOGLOBIN 30.8 pg (27.0-33.0); MEAN CORPUSCULAR VOLUME 93.4 fl (80.0-96.0); MONO # 0.5 10^3/uL (0.0-0.8); NEUTROPHILS # 5.5 10^3/uL (1.5-8.5); NEUTROPHILS % 78.4 % (36.0-66.0); PLATELET COUNT, AUTOMATED 205 10^3/uL (150-450); RED BLOOD COUNT 3.96 10^6/uL (4.00-5.40)
[2024-05-06 10:58] LABS: ERYTHROCYTE SEDIMENTATION RATE 6 mm/hr (0-20)
[2024-05-06 11:18] LABS: C REACTIVE PROTEIN QUANTITATIV 0.69 MG/DL (<1.0)
[2024-05-06 11:19] LABS: ALBUMIN 3.8 G/DL (3.2-5.2); ALKALINE PHOSPHATASE 56 U/L (35-104); ALT/SGPT 28 U/L (7.0-40); AST/SGOT 19 U/L (<34); BILIRUBIN,DIRECT 0.2 MG/DL (<0.4); BILIRUBIN,TOTAL 0.5 MG/DL (0.3-1.2); BLOOD UREA NITROGEN 11 MG/DL (9-23); CALCIUM LEVEL 8.4 MG/DL (8.5-10.1); CARBON DIOXIDE LEVEL 24 MMOL/L (20-31); CHLORIDE LEVEL 109 MMOL/L (98-107); CREATININE FOR GFR 0.68 MG/DL (0.55-1.30); GLOMERULAR FILTRATION RATE > 60.0 (>60); GLUCOSE, FASTING 90 MG/DL (60-100); POTASSIUM SERUM 4.1 MMOL/L (3.5-5.1); SODIUM LEVEL 142 MMOL/L (136-145); TOTAL PROTEIN 6.7 G/DL (5.7-8.2)
== END ==
LOC: M LAB 09:54
PROVIDERS: ATTEND Internal Medicine
DX: M05.79 Rheumatoid arthritis with rheumatoid factor of multiple sites without organ or systems involvement (principal)

== ENCOUNTER → 2024-05-27 | Outpatient (CLI) | payer SELFPAY ==
[2024-05-27 11:06] LABS: HEMATOCRIT 36.3 % (36.0-47.0); HEMOGLOBIN 12.3 g/dl (12.0-15.5); MEAN CORPUSCULAR HEMOGLOBIN 31.1 pg (27.0-33.0); MEAN CORPUSCULAR HGB CONC 33.9 g/dl (32.0-36.5); MEAN CORPUSCULAR VOLUME 91.9 fl (80.0-96.0); PLATELET COUNT, AUTOMATED 246 10^3/uL (150-450); RED BLOOD COUNT 3.95 10^6/uL (4.00-5.40); WHITE BLOOD COUNT 7.7 10^3/uL (4.0-10.0)
[2024-05-27 11:22] LABS: C REACTIVE PROTEIN QUANTITATIV 1.29 MG/DL (<1.0)
[2024-05-27 11:23] LABS: ALBUMIN 3.9 G/DL (3.2-5.2); ALKALINE PHOSPHATASE 62 U/L (35-104); ALT/SGPT 27 U/L (7.0-40); AST/SGOT 16 U/L (<34); BILIRUBIN,DIRECT 0.1 MG/DL (<0.4); BILIRUBIN,TOTAL 0.4 MG/DL (0.3-1.2); BLOOD UREA NITROGEN 11 MG/DL (9-23); CALCIUM LEVEL 8.5 MG/DL (8.5-10.1); CARBON DIOXIDE LEVEL 26 MMOL/L (20-31); CHLORIDE LEVEL 108 MMOL/L (98-107); CREATININE FOR GFR 0.62 MG/DL (0.55-1.30); GLOMERULAR FILTRATION RATE > 60.0 (>60); GLUCOSE, FASTING 85 MG/DL (60-100); POTASSIUM SERUM 3.9 MMOL/L (3.5-5.1); SODIUM LEVEL 141 MMOL/L (136-145); TOTAL PROTEIN 6.9 G/DL (5.7-8.2)
[2024-05-27 11:25] LABS: ERYTHROCYTE SEDIMENTATION RATE 9 mm/hr (0-20)
[2024-05-27 11:37] LABS: ATYPICAL LYMPH 10 % (0-5); BASOPHILS 1 % (0-1); EOSINOPHILS 3 % (0-3); LYMPHOCYTES 14 % (16-44); MONOCYTES 2 % (0-5); NEUTROPHILS 69 % (28-66)
[2024-05-27 11:40] LABS: PLATELET ESTIMATE NORMAL (NORMAL)
== END ==
LOC: M LAB 09:56
PROVIDERS: ATTEND Internal Medicine
DX: M05.79 Rheumatoid arthritis with rheumatoid factor of multiple sites without organ or systems involvement (principal)